=== PATIENT | male | born 1980 | race Two or more races ===

== ENCOUNTER 2024-04-28 14:08 | Inpatient (IN) | payer MEDICAID, OTHER ==
[2024-04-28] VITALS (9 sets, daily range): BP systolic 99–138; BP diastolic 39–53; PULSE 56–76; RESP 13–21; TEMP 98–98.4; O2SAT 99
[~2024-04-28] VITALS: Ht 160 cm; Wt 81.7 kg
[2024-04-28] MEDS: SODIUM CHLORIDE 0.9% 1,000 ML IV SCH (03:05)
[2024-04-28 15:52] LABS: Eosinophils # (auto) 0.1 10 ^3/uL (0-0.8); Monocytes # (auto) 0.5 10 ^3/uL (0-1.3); Neutrophils # (auto) 4.4 10 ^3/uL (1.6-8.6); Nucleated Red Blood Cells % 0.2 %
[2024-04-28 15:54] LABS: Basophils # (auto) 0 10 ^3/uL (0-0.2); Basophils % (auto) 0.5 % (0.0-2.0); Eosinophils % (auto) 1.7 % (0.0-7.0); Hematocrit 25.9 % (41.0-53.0); Lymphocytes # (auto) 1.7 10 ^3/uL (0.4-5.4); Lymphocytes % (auto) 25.7 % (10.0-50.0); Mean Corpuscular Hemoglobin 12.8 pg (28.0-32.0); Mean Corpuscular Hgb Conc. 23.7 g/dL (32.0-36.0); Mean Corpuscular Volume 53.8 fL (80.0-100.0); Neutrophils % (auto) 65.1 % (37.0-80.0); Platelet Count (auto) 338 10^3/uL (140-450); Red Blood Cells 4.81 10^6/uL (4.5-5.90); White Blood Cell 6.8 10^3/uL (4.4-10.8)
[2024-04-28 16:00] LABS: Hemoglobin 6.1 g/dL (13.5-17.5); Red Cell Distribution Width 26.1 % (11.8-14.3)
[2024-04-28 16:16] LABS: Alanine Aminotransferase 17 U/L (7-40); Albumin 4.5 g/dL (3.2-4.8); Alkaline Phosphatase 77 U/L (46-116); Anion Gap 3 (5-15); Aspartate Aminotransferase 14 U/L (13-40); Bilirubin, Total 2.2 mg/dL (0.2-1.0); Blood Urea Nitrogen 13 mg/dL (9-23); Calcium 9.1 mg/dL (8.7-10.4); Carbon Dioxide 28 mmol/L (20-30); Chloride 108 mmol/L (98-107); Glucose 92 mg/dL (74-106); Potassium 4.2 mmol/L (3.5-5.1); Sodium 139 mmol/L (136-145)
[2024-04-28 17:38] LABS: Anisocytosis Moderate; Platelet Estimate Adequate
[2024-04-28 17:39] LABS: Hypochromia Marked; Ovalocytes MODERATE; Tear Drop Cells FEW
[2024-04-28 17:59] LABS: % Iron Saturation 4.1 % (20-55)
[2024-04-28] MEDS ORDERED: ACETAMINOPHEN 325 MG TAB PO PRN (21:15)
[2024-04-28] MEDS ORDERED: HYDROcodone-ACET 5/325MG TAB PO PRN (21:15)
[2024-04-28] MEDS ORDERED: DOCUSATE SOD 100 MG CAP PO PRN (21:15)
[2024-04-28] MEDS ORDERED: ONDANSETRON HCL 4 MG/2 ML VIAL IV PRN (21:15)
[2024-04-28] MEDS ORDERED: NITROGLYCERIN 0.4 MG SL TAB SL PRN (22:15)
[2024-04-28] MEDS ORDERED: MORPHINE SULFATE INJ 2 MG/ml SYRG IV PRN (22:15)
[2024-04-29] VITALS (10 sets, daily range): BP systolic 94–117; BP diastolic 42–69; PULSE 54–62; RESP 16–20; TEMP 98–98.8; O2SAT 96–100
[2024-04-29] MEDS ORDERED: FER325T PO (02:24)
[2024-04-29 06:16] LABS: Lymphocytes # (auto) 1.4 10 ^3/uL (0.4-5.4); Neutrophils # (auto) 2.7 10 ^3/uL (1.6-8.6)
[2024-04-29 06:19] LABS: Basophils # (auto) 0.1 10 ^3/uL (0-0.2); Basophils % (auto) 1.1 % (0.0-2.0); Eosinophils # (auto) 0.1 10 ^3/uL (0-0.8); Eosinophils % (auto) 2.6 % (0.0-7.0); Hematocrit 30.8 % (41.0-53.0); Lymphocytes % (auto) 29.4 % (10.0-50.0); Mean Corpuscular Hemoglobin 15.3 pg (28.0-32.0); Mean Corpuscular Hgb Conc. 26.1 g/dL (32.0-36.0); Mean Corpuscular Volume 58.7 fL (80.0-100.0); Monocytes # (auto) 0.5 10 ^3/uL (0-1.3); Monocytes % (auto) 9.5 % (0.0-12.0); Neutrophils % (auto) 57.4 % (37.0-80.0); Nucleated Red Blood Cells % 0.3 %; Platelet Count (auto) 272 10^3/uL (140-450); Red Blood Cells 5.24 10^6/uL (4.5-5.90); White Blood Cell 4.8 10^3/uL (4.4-10.8)
[2024-04-29 06:29] LABS: Alanine Aminotransferase 13 U/L (7-40); Albumin 4.1 g/dL (3.2-4.8); Alkaline Phosphatase 64 U/L (46-116); Anion Gap 4 (5-15); Aspartate Aminotransferase 12 U/L (13-40); BUN/Creatinine Ratio 10.5 (10.0-20.0); Bilirubin, Total 2.7 mg/dL (0.2-1.0); Blood Urea Nitrogen 9 mg/dL (9-23); Calcium 8.9 mg/dL (8.7-10.4); Carbon Dioxide 27 mmol/L (20-30); Chloride 109 mmol/L (98-107); Glucose 81 mg/dL (74-106); Sodium 140 mmol/L (136-145); Total Protein 6.7 g/dL (5.7-8.2)
[2024-04-29 06:54] LABS: Red Cell Distribution Width 32.6 % (11.8-14.3)
[2024-04-29 08:45] LABS: Anisocytosis Marked; Hypochromia Marked; Platelet Estimate Adequate
[2024-04-29 08:46] LABS: Ovalocytes MODERATE; Tear Drop Cells FEW
[2024-04-30 10:50] LABS: Folate (Folic Acid) 14.05 ng/mL (>5.38)
== END 2024-04-29 15:00 | disposition home or self-care (01) | DRG 663 ==
LOC: ER 14:08 → TELE 22:11 → TELE-CENTR 23:45
PROVIDERS: ADMIT Nurse Practitioner Family; ATTEND Nurse Practitioner Family
PROC: 30233N1 Transfusion of Nonautologous Red Blood Cells into Peripheral Vein, Percutaneous Approach (ICD-10-PCS; principal; 2024-04-28)
DX: D50.9 Iron deficiency anemia, unspecified (principal)
CPT/HCPCS: 36415; 36430; 80053; 82607; 82728; 82746; 83540; 83550; 83605; 83615; 84484; 85025; 85045; 86850; 86900; 86901; 86922; G0378

== ENCOUNTER 2024-11-09 18:25 | Inpatient (IN) | payer MEDICAID ==
[~2024-11-09] VITALS: Ht 160 cm; Wt 81.5 kg
[~2024-11-09 18:25] MED LIST: FER325T PO
--- NOTE | 2024-11-09 19:00 | ED.PDOC ---
History of Present Illness HPI Comments 44M presents to the Er w/ prior Hx of anemia which may be associated to the c/c of ABN labs. Pt reports on getting his blood drawn on Tuesday11/05/24 and getting a call the next day of 11/06/24 and not getting to the ER until Tuesday, which is today of 11/09/24. Pt states that the call was about his hemoglobin was in 5.2. Pt notes that the anemic started in 2014 and has had a transfusion in the past. Social Hx of Second hand tobacco use, but denies alcohol and substance use. Denies chills, fever, N/V/D, SOB, CP or other associated symptom's, modifiers, or recent injuries or sick contact at this time. Time Seen by MD: 18:45 Reviewed Notes: Nurses Notes, Medications, Allergies Allergies: Coded Allergies: NO KNOWN ALLERGIES (Unverified , 04/28/24) Home Meds Reported Medications Ferrous Sulfate (Ferrous Sulfate) 325 Mg Tab, 1 TAB PO BID 04/29/24 Information Source: Patient Mode of Arrival: Ambulatory Severity: Moderate Timing: Days Duration: Since onset, Days Prehospital treatment: None Past Medical History PAST MEDICAL HISTORY: Anemia Surgical History: Denies all surgeries Family History Family History: Reviewed,noncontributory to illness, Unknown Social History Smoker: Secondhand Alcohol: Denies ETOH Use Drugs: Denies Drug Use Lives In: Home Constitutional: denies: chills, diaphoresis, fatigue, fever, malaise, sweats, weakness, others EENTM: denies: blurred vision, double vision, ear bleeding, ear discharge, ear drainage, ear pain, ear ringing, eye pain, eye redness, hearing loss, mouth pain, mouth swelling, nasal discharge, nose bleeding, nose congestion, nose pain, photophobia, tearing, throat pain, throat swelling, voice changes, others Respiratory: denies: cough, hemoptysis, orthopnea, SOB at rest, shortness of breath, SOB with excertion, stridor, wheezing, others Cardiovascular: denies: chest pain, dizzy spells, diaphoresis, Dyspnea on exertion, edema, irregular heart beat, left arm pain, lightheadedness, palpitations, PND, syncope, others Gastrointestinal: denies: abdomen distended, abdominal pain, blood streaked bowels, constipated, diarrhea, dysphagia, difficulty swallowing, hematemesis, melena, nausea, poor appetite, poor fluid intake, rectal bleeding, rectal pain, vomiting, others Genitourinary: denies: burning, dysuria, flank pain, frequency, hematuria, incontinence, penile discharge, penile sore, pain, testicle pain, testicle swelling, urgency, others Neurological: denies: dizziness, fainting, headache, left sided numbness, left sided weakness, numbness, paresthesia, pre-existing deficit, right sided nu mbness, right sided weakness, seizure, speech problems, tingling, tremors, weakness, others Musculoskeletal: denies: back pain, gout, joint pain, joint swelling, muscle pain, muscle stiffness, neck pain, others Integumetry: denies: bruises, change in color, change in hair/nails, dryness, laceration, lesions, lumps, rash, wounds, others Allergic/Immunocompromised: denies: Difficulty Healing, Frequent Infections, Hives, Itching, others Hematologic/Lymphatic: denies: anemia, blood clots, easy bleeding, easy bruising, swollen glands, others Endocrine: denies: excessive hunger, excessive sweating, excessive thirst, excessive urination, flushing, intolerance to cold, intolerance to heat, unexplained weight gain, unexplained weight loss, others Psychiatric: denies: anxiety, bipolar disorder, depression, hopeless, panic disorder, schizophrenia, sleepless, suicidal, others All Other Systems: Reviewed and Negative Physical Exam General Appearance: Moderate Distress HEENT: Pale Conjuntivae (L), Pale Conjuntivae (R), Pharynx Normal, TMs Normal Neck: Full Range of Motion, Non-Tender, Normal, Normal Inspection Respiratory: Chest Non-Tender, Lungs Clear, No Accessory Muscle Use, No Respiratory Distress, Normal Breath Sounds Cardiovascular: No Edema, No JVD, No Murmur, No Gallop, Normal Peripheral Pulses, Regular Rate/Rhythm Breast Exam: Deferred Gastrointestinal: No Organomegaly, Non Tender, No Pulsatile Mass, Normal Bowel Sounds, Soft Genitalia: Deferred Pelvic: Deferred Rectal: Deferred Extremities: No calf tenderness, Normal capillary refill, Normal inspection, Normal range of motion, Non-tender, No pedal edema Musculoskeletal : Apperance: Normal Neurologic: Alert, electronic die maker II-XII nml as Tested, Motor Weakness, Normal Affect, Normal Mood, No Sensory Deficits Cerebellar Function: Normal Reflexes: Normal Skin: Dry, Pallor, Warm Lymphatic: No Adenopathy Was a procedure done? Was a procedure done?: No Differential Dx Considerations may include: Severe anemia, generalized weakness X-Ray, Labs, Meds, VS Vital Signs Date Time Temp Pulse Resp B/P (MAP) Pulse Ox O2 Delivery O2 Flow Rate FiO2 11/09/24 19:02 98.2 91 20 110/56 (74) 99 Lab Test 11/09/24 19:10 Range/Units White Blood Count 7.2 4.4-10.8 10^3/uL Red Blood Count 4.28 L 4.5-5.90 10^6/uL Hemoglobin 5.3 *L 13.5-17.5 g/dL Hematocrit 22.5 L 41.0-53.0 % Mean Corpuscular Volume 52.6 L 80.0-100.0 fL Mean Corpuscular Hemoglobin 12.4 L 28.0-32.0 pg Mean Corpuscular Hemoglobin Concent 23.6 L 32.0-36.0 g/dL Red Cell Distribution Width 26.7 H 11.8-14.3 % Platelet Count 286 140-450 10^3/uL Mean Platelet Volume 9.2 6.9-10.8 fL Neutrophils (%) (Auto) 61.7 37.0-80.0 % Lymphocytes (%) (Auto) 28.1 10.0-50.0 % Monocytes (%) (Auto) 7.1 0.0-12.0 % Eosinophils (%) (Auto) 2.0 0.0-7.0 % Basophils (%) (Auto) 1.1 0.0-2.0 % Neutrophils # (Auto) 4.5 1.6-8.6 10 ^3/uL Lymphocytes # (Auto) 2.0 0.4-5.4 10 ^3/uL Monocytes # (Auto) 0.5 0-1.3 10 ^3/uL Eosinophils # (Auto) 0.1 0-0.8 10 ^3/uL Basophils # (Auto) 0.1 0-0.2 10 ^3/uL Nucleated Red Blood Cells 0.6 % Platelet Estimate Adequate Hypochromasia (manual) Marked Anisocytosis (manual) Moderate Microcytosis Marked Tear Drop Cells Few Ovalocytes Moderate Schistocytes Moderate Sodium Level 140 136-145 mmol/L Potassium Level 4.0 3.5-5.1 mmol/L Chloride Level 106 98-107 mmol/L Carbon Dioxide Level 26 20-31 mmol/L Anion Gap 8 5-15 Blood Urea Nitrogen 10 9-23 mg/dL Creatinine 0.88 0.700-1.30 mg/dL Glomerular Filtration Rate Calc 107 >90 mL/min BUN/Creatinine Ratio 11.4 10.0-20.0 Serum Glucose 103 74-106 mg/dL Calcium Level 9.5 8.7-10.4 mg/dL IV Hep-Lock was established The CBC shows a hemoglobin of 5.3 hematocrit of 22.5 The platelets are within normal limits The chemistry panel is within normal limits. At this time we typed and screen the patient and the patient will be admitted The patient will be transfused with 2 units of packed red blood cells The patient was being admitted Images Reviewed?: Images reviewed and evaluated by me Time of 1ST Reevaluation: 19:15 Reevaluation 1ST: Unchanged Patient Education/Counseling: Diagnosis, Treatment, Prognosis Family Education/Counseling: No Family Present Departure 1 Departure Time of Disposition: 20:09 Impression: Primary Impression: Generalized weakness Additional Impression: Severe anemia Disposition: ADMITTED INPATIENT Admit to: Tele Condition: Fair Critical Care Note Critical Care Time?: Yes (35 min-critical care time only) Stability Stability form required: Yes Unstable for transfer: Telemetry monitoring (Telemetry monitoring required), ED Physician Assesment (Clinical assesment) Heart Score Heart Score: Heart Score Response (Comments) Value History N/A 0 EKG N/A 0 Age N/A 0 Risk Factors N/A 0 Troponin N/A 0 Total 0 I personally scribed for FAM GUTIERREZ MD ([email or web address]) on 11/09/24 at 18:59. Electronically submitted by Luis Diaz ([email or web address]). FAM GUTIERREZ MD Nov 09, 2024 18:59
[2024-11-09 19:33] LABS: Basophils # (auto) 0.1 10 ^3/uL (0-0.2); Eosinophils # (auto) 0.1 10 ^3/uL (0-0.8); Hematocrit 22.5 % (41.0-53.0); Mean Corpuscular Hgb Conc. 23.6 g/dL (32.0-36.0)
[2024-11-09 19:37] LABS: Basophils % (auto) 1.1 % (0.0-2.0); Lymphocytes % (auto) 28.1 % (10.0-50.0); Mean Corpuscular Hemoglobin 12.4 pg (28.0-32.0); Mean Corpuscular Volume 52.6 fL (80.0-100.0); Monocytes # (auto) 0.5 10 ^3/uL (0-1.3); Monocytes % (auto) 7.1 % (0.0-12.0); Neutrophils # (auto) 4.5 10 ^3/uL (1.6-8.6); Neutrophils % (auto) 61.7 % (37.0-80.0); Nucleated Red Blood Cells % 0.6 %; Platelet Count (auto) 286 10^3/uL (140-450); Red Blood Cells 4.28 10^6/uL (4.5-5.90); Red Cell Distribution Width 26.7 % (11.8-14.3); White Blood Cell 7.2 10^3/uL (4.4-10.8)
[2024-11-09 19:41] LABS: Chloride 106 mmol/L (98-107); Hemoglobin 5.3 g/dL (13.5-17.5); Sodium 140 mmol/L (136-145)
[2024-11-09 19:42] LABS: Anion Gap 8 (5-15); Calcium 9.5 mg/dL (8.7-10.4); Carbon Dioxide 26 mmol/L (20-31)
[2024-11-09 19:47] LABS: BUN/Creatinine Ratio 11.4 (10.0-20.0); Blood Urea Nitrogen 10 mg/dL (9-23); Glucose 103 mg/dL (74-106)
[2024-11-09 20:00] LABS: Platelet Estimate Adequate
[2024-11-09 20:04] LABS: Ovalocytes MODERATE; Tear Drop Cells FEW
[2024-11-09 20:05] LABS: Hypochromia Marked
[2024-11-09 20:06] LABS: Anisocytosis Moderate
[2024-11-09] MEDS: SODIUM CHLOR 0.9% PF (SALINE LOCK) 10ML VIAL/SYR IV SCH (22:00)
[2024-11-09] MEDS ORDERED: ACETAMINOPHEN 325 MG TAB PO PRN (22:00)
[2024-11-09] MEDS ORDERED: MORPHINE SULFATE INJ 2 MG/ml SYRG IV PRN (22:00)
[2024-11-09 22:15] VITALS: PULSE 77; RESP 17; O2SAT 100
[2024-11-09] MEDS: SODIUM CHLORIDE 0.9% 1,000 ML IV SCH (22:22)
[2024-11-09 22:29] LABS: INR 1.03 (0.9-1.15); Partial Thromboplastin Time 24.3 SEC (24.5-34.5); Prothrombin Time 10.9 sec (9.3-11.8)
[2024-11-09 22:42] LABS: % Iron Saturation 3.3 % (20-55)
[2024-11-09 23:01] LABS: Albumin 4.7 g/dL (3.2-4.8); Alkaline Phosphatase 70 U/L (46-116); Anion Gap 7 (5-15); BUN/Creatinine Ratio 11.7 (10.0-20.0); Blood Alcohol 4.7 mg/dL (<10); Blood Urea Nitrogen 11 mg/dL (9-23); Calcium 9.2 mg/dL (8.7-10.4); Carbon Dioxide 27 mmol/L (20-31); Chloride 106 mmol/L (98-107); Glucose 99 mg/dL (74-106); Magnesium 2.3 mg/dL (1.6-2.6); Potassium 3.6 mmol/L (3.5-5.1); Sodium 140 mmol/L (136-145); Total Protein 7.5 g/dL (5.7-8.2)
[2024-11-09 23:02] LABS: Aspartate Aminotransferase 10 U/L (13-40)
[2024-11-09 23:03] LABS: Alanine Aminotransferase < 9 U/L (7-40); Bilirubin, Total 1.9 mg/dL (0.2-1.0); Fibrinogen 299 mg/dL (177-375)
--- NOTE | 2024-11-09 23:21 | DVHHPRES ---
History of Present Illness Resident Creating Document: ERIC GUPTA RESIDENT History of Present Illness Niall Foster 44 years old male with a PMH of anemia presented to the ED with the chief complaints of abnormal labs. Patient reported he recently underwent lab test on 11/05/2024 and got a call from the lab next day regarding his hemoglobin and advised him to visit ED. patient reported he has been having longstanding chronic anemia for 10 years which required multiple transfusions and underwent many procedures like colonoscopy and endoscopy which are inconclusive, recent colonoscopy endoscopy was 14 months ago which is negative. Patient reported his symptoms feel fatty, dizziness which is on and off and taking iron pills. Patient reports for last 2 weeks he is not taking iron pills properly. On my assessment patient denies fever, nausea, vomiting, shortness of breath, dizziness, other acute associated symptoms. PMH: Chronic anemia PSH: Denies Social history: Lives with family. Denies smoking, alcohol and other drug abuse Family history: Noncontributory Allergies: No known allergies Review of Systems Constitutional: Yes: Weakness Eyes: No: Pain, Vision change, Conjunctivae inflammation, Eyelid inflammation, Other, Redness ENT: No: Ear pain, Ear discharge, Nose pain, Nose discharge, Nose congestion, Mouth pain, Mouth swelling, Throat pain, Throat swelling, Other Respiratory: No: Cough, Dry, Shortness of breath, SOB with excertion, Wheezing, Hemoptysis, Pleuritic Pain, Sputum, Wheezing, Other Cardiovascular: Lt Headedness; No: Chest Pain, Palpitations, Orthopnea, Paroxysmal Noc. Dyspnea, Edema, Other Gastrointestinal: No: Nausea, Vomiting, Abdominal Pain, Diarrhea, Constipation, Melena, Hematochezia, Other Genitourinary: No Dysuria, No Frequency, No Incontinence, No Hematuria, No Retention, No Other Musculoskeletal: No: other, neck pain, shoulder pain, arm pain, back pain, hand pain, leg pain, foot pain Skin: No: Rash, Lesions, Jaundice, Bruising, Other Neurological: No: Weakness, Numbness, Incoordination, Change in speech, Confusion, Seizures, Other Allergies: Coded Allergies: NO KNOWN ALLERGIES (Unverified , 04/28/24) Medications Current Medications Medications Dose Ordered Sig/Kimberly Route Start Time Stop Time Status Last Admin Dose Admin Sodium Chloride 10 ml Q8HR IV 11/09/24 22:00 Sodium Chloride 1,000 ml @ 120 mls/hr Q8H20M IV 11/09/24 22:00 11/09/24 22:22 120 MLS/HR Acetaminophen 650 mg Q6HP PRN PO 11/09/24 22:00 Morphine Sulfate 2 mg Q4HPRN PRN IV 11/09/24 22:00 Exam Vital Signs Vital Signs Date Time Temp Pulse Resp B/P (MAP) Pulse Ox O2 Delivery O2 Flow Rate FiO2 11/09/24 21:59 98.3 71 19 112/41 (64) 100 98.3 Exam Pt is lying on bed General Appearance: Alert, Oriented X3, Cooperative, Not in acute distress HEENT: Atraumatic, Mucous membranes moist/pink Respiratory: Clear to auscultation, Normal air movement, No added sounds Cardiovascular: Regular rate, Normal S1, Normal S2, No murmurs Abdominal: Active bowel sounds, Soft, no distention, no tenderness Extremities: No edema, Normal pulses, No tenderness/swelling Skin: No Significant rash, except past surgical scars Neuro: Normal speech, sensorimotor deficits none Psych/Mental Status: Mental status NL, Mood NL Rectal rectal exam: Rectal exam performed, no external lesions or tags noted, rectal vault is empty, no masses palpable. Nurse was there as sharperone during examination Labs/Xrays Labs Test 11/09/24 22:32 11/09/24 22:28 11/09/24 22:17 11/09/24 19:10 Range/Units Stool Occult Blood Negative Negative Stool Occult Blood Sample #3 Negative Fibrinogen 299 177-375 mg/dL D-Dimer, Quantitative < 0.19 0.0-0.49 mg/L FEU Sodium Level 140 136-145 mmol/L Potassium Level 3.6 3.5-5.1 mmol/L Chloride Level 106 98-107 mmol/L Carbon Dioxide Level 27 20-31 mmol/L Anion Gap 7 5-15 Blood Urea Nitrogen 11 9-23 mg/dL Creatinine 0.94 0.700-1.30 mg/dL Glomerular Filtration Rate Calc 101 >90 mL/min BUN/Creatinine Ratio 11.7 10.0-20.0 Serum Glucose 99 74-106 mg/dL Calcium Level 9.2 8.7-10.4 mg/dL Magnesium Level 2.3 1.6-2.6 mg/dL Total Bilirubin 1.9 H 0.2-1.0 mg/dL Aspartate Amino Transferase (AST) 10 L 13-40 U/L Alanine Aminotransferase (ALT) < 9 7-40 U/L Alkaline Phosphatase 70 46-116 U/L Total Protein 7.5 5.7-8.2 g/dL Albumin 4.7 3.2-4.8 g/dL Plasma/Serum Blood Alcohol 4.7 <10 mg/dL White Blood Count 7.2 4.4-10.8 10^3/uL Red Blood Count 4.28 L 4.5-5.90 10^6/uL Hemoglobin 5.3 *L 13.5-17.5 g/dL Hematocrit 22.5 L 41.0-53.0 % Mean Corpuscular Volume 52.6 L 80.0-100.0 fL Mean Corpuscular Hemoglobin 12.4 L 28.0-32.0 pg Mean Corpuscular Hemoglobin Concent 23.6 L 32.0-36.0 g/dL Red Cell Distribution Width 26.7 H 11.8-14.3 % Platelet Count 286 140-450 10^3/uL Mean Platelet Volume 9.2 6.9-10.8 fL Neutrophils (%) (Auto) 61.7 37.0-80.0 % Lymphocytes (%) (Auto) 28.1 10.0-50.0 % Monocytes (%) (Auto) 7.1 0.0-12.0 % Eosinophils (%) (Auto) 2.0 0.0-7.0 % Basophils (%) (Auto) 1.1 0.0-2.0 % Neutrophils # (Auto) 4.5 1.6-8.6 10 ^3/uL Lymphocytes # (Auto) 2.0 0.4-5.4 10 ^3/uL Monocytes # (Auto) 0.5 0-1.3 10 ^3/uL Eosinophils # (Auto) 0.1 0-0.8 10 ^3/uL Basophils # (Auto) 0.1 0-0.2 10 ^3/uL Nucleated Red Blood Cells 0.6 % Platelet Estimate Adequate Hypochromasia (manual) Marked Anisocytosis (manual) Moderate Microcytosis Marked Tear Drop Cells Few Ovalocytes Moderate Schistocytes Moderate Prothrombin Time 10.9 9.3-11.8 sec Prothrombin Time INR 1.03 0.9-1.15 Activated Partial Thromboplast Time 24.3 L 24.5-34.5 SEC Iron Level 12 L 65-175 ug/dL Total Iron Binding Capacity 365 250-425 ug/dL Percent Iron Saturation 3.3 L 20-55 % Ferritin 2.2 L 22-322 ng/mL B-Type Natriuretic Peptide 102.61 0-100 pg/mL Thyroid Stimulating Hormone (TSH) 2.99 0.55-4.78 uIU/mL Assessment/Plan Assessment/Plan # chronic microcytic, hypochromic red deficiency anemia -ordered PRBC -ordered labs -iron IV BP -ordered echocardiogram -ordered CT abdominal pelvis -rectal examination done and send sample for the occult blood -IV Protonix -GI consult if needed Protonix Patient is ambulatory Regular diet Goals of care discussed with the patient for more than 29 minutes: Full code status Case discussed with Dr. Perez, patient and nurse Plan discussed with: Patient My Orders Orders - ERIC GUPTA RESIDENT Procedure Category Date Status Time Admit ADMIT 11/09/24 Transmitted 22:00 Allergies LANDON 11/09/24 In Process 22:00 Code Status CODE 11/09/24 Transmitted 22:00 Sodium Chloride Lock PHA 11/09/24 In Process (Saline Lock Ns) 22:00 Sodium Chloride 0.9% PHA 11/09/24 In Process 22:00 Complete Blood Count LAB 11/10/24 Verified 04:00 Comprehensive LAB 11/10/24 Verified Metabolic Panel 04:00 Cardiac DIET 11/10/24 Transmitted Diet-2gna,Lofat,Lochol Breakfast Echo 2d Mode Cardiac US 11/09/24 Logged DOP 22:00 Condition: Stable LANDON 11/09/24 In Process 22:00 Acetaminophen Tablet PHA 11/09/24 In Process (Tylenol Tablet) 22:00 Morphine Sulfate PHA 11/09/24 In Process Injection 22:00 Sequential LANDON 11/09/24 In Process Compression Device Covid19 Antigen Rocio LAB 11/09/24 In Process 22:00 Drug Screen LAB 11/09/24 Logged 22:00 Rapid Influenza A&B LAB 11/09/24 In Process 22:00 Urinalysis LAB 11/09/24 Logged 22:00 Ct Ab Pel Wo Con-No CT 11/09/24 Logged Oral Or Iv 22:05 Reticulocyte Count LAB 11/09/24 In Process 23:13 Iron Sucrose Complex PHA 11/10/24 Logged (Venofer) 12:00 Pantoprazole PHA 11/09/24 Transmitted (Protonix) 23:30 Date of Service: Nov 09, 2024 Billing Provider: ORESTES PEREZ MD Common Visit Codes: [id number] INP/OBS CARE (HIGH) ERIC GUPTA RESIDENT Nov 09, 2024 23:21 ORESTES PEREZ MD Nov 12, 2024 10:24
[2024-11-09 23:22] LABS: COVID19 ANTIGEN SOFIA FIA NEGATIVE (NEGATIVE); Rapid Influenza A Negative (Negative); Rapid Influenza B Negative (Negative)
[2024-11-09] MEDS: PANTOPRAZOLE 40 MG/10 ML VIAL INJ IV SCH (23:45)
[2024-11-09 23:46] VITALS: BP 113/36; PULSE 77; RESP 26; TEMP 98.3
[2024-11-10] VITALS (18 sets, daily range): BP systolic 98–120; BP diastolic 38–78; PULSE 63–81; RESP 16–28; TEMP 98–99.2; O2SAT 97–99
--- NOTE | 2024-11-10 00:54 | DVH ---
CLINICAL HISTORY: Abdominal mass TECHNIQUE: CT of the abdomen and pelvis was performed without intravenous contrast. This exam was per formed according to our departmental dose optimization program. Up-to-date CT equipment and radiation dose reduction techniques are utilized as appropriate. COMPARISON: None FINDINGS: Lower Thorax: Moderate hiatal hernia. Tiny, sub 5 mm nodule in the basilar right lower lobe on series 3, image 15. Hypodensity of the blood pool relative to the myocardium indicative of anemia. There is mild cardiomegaly. Liver and Biliary system: Unremarkable. Spleen: Splenomegaly. Adrenal Glands and Kidneys: Unremarkable. Pancreas and Retroperitoneum: Unremarkable. Aorta and Major Vessels: Unremarkable. Bowel, Mesentery and Peritoneal space: Normal caliber small and large bowel. Moderate sigmoid diverti culosis normal appendix. No free air or fluid collection. Pelvis: Unremarkable. Abdominal wall and Osseous Structures: Small fat containing bilateral inguinal and umbilical hernias. No destructive osseous lesion. IMPRESSION: 1. No noncontrast evidence of acute abnormality or abdominal mass. 2. Moderate hiatal hernia. 3. Anemia suggested. Correlate with CBC 4. Mild cardiomegaly. 5. Splenomegaly. 6. Moderate sigmoid diverticulosis.
[2024-11-10 01:29] LABS: Urine Bacteria None Seen /hpf (None Seen)
[2024-11-10 02:05] LABS: Urine Blood Negative /uL (Negative); Urine Clarity Clear (Clear); Urine Color Light-Yellow (Yellow); Urine Mucus FEW (None Seen); Urine Protein, UAD Negative (Negative); Urine Specific Gravity 1.019 (1.001-1.035); Urine Squamous Epithelial Cell None Seen /hpf (<5); Urine Urobilinogen Normal (Negative); Urine WBC < 1 /HPF (0-3); Urine pH 5.5 (5.0-9.0)
[2024-11-10 02:06] LABS: Amphetamine Screen, Urine Neg (NEGATIVE); Barbiturate Scree,Urine Neg (NEGATIVE); Benzodiazephine Screen, Urine Neg (NEGATIVE); Cannabinoid Screen, Urine Neg (NEGATIVE); Cocaine Screen, Urine Neg (NEGATIVE); Opiate Scree,Urine Neg (NEGATIVE); Phencyclidine Screen, Urine Neg (NEGATIVE)
[2024-11-10 07:15] LABS: Basophils # (auto) 0.1 10 ^3/uL (0-0.2); Basophils % (auto) 1.1 % (0.0-2.0); Eosinophils # (auto) 0.1 10 ^3/uL (0-0.8); Eosinophils % (auto) 1.7 % (0.0-7.0); Hematocrit 27.1 % (41.0-53.0); Hemoglobin 7.2 g/dL (13.5-17.5); Lymphocytes # (auto) 1.2 10 ^3/uL (0.4-5.4); Lymphocytes % (auto) 18.4 % (10.0-50.0); Mean Corpuscular Hemoglobin 16.1 pg (28.0-32.0); Mean Corpuscular Hgb Conc. 26.5 g/dL (32.0-36.0); Mean Corpuscular Volume 60.7 fL (80.0-100.0); Monocytes # (auto) 0.5 10 ^3/uL (0-1.3); Monocytes % (auto) 6.9 % (0.0-12.0); Neutrophils # (auto) 4.9 10 ^3/uL (1.6-8.6); Neutrophils % (auto) 71.9 % (37.0-80.0); Nucleated Red Blood Cells % 0.4 %; Platelet Count (auto) 272 10^3/uL (140-450); Red Blood Cells 4.46 10^6/uL (4.5-5.90); White Blood Cell 6.8 10^3/uL (4.4-10.8)
[2024-11-10 07:47] LABS: Albumin 4.1 g/dL (3.2-4.8); Alkaline Phosphatase 62 U/L (46-116); Anion Gap 9 (5-15); BUN/Creatinine Ratio 13.3 (10.0-20.0); Blood Urea Nitrogen 11 mg/dL (9-23); Carbon Dioxide 24 mmol/L (20-31); Chloride 106 mmol/L (98-107); Glucose 87 mg/dL (74-106); Potassium 3.9 mmol/L (3.5-5.1); Sodium 139 mmol/L (136-145); Total Protein 6.6 g/dL (5.7-8.2)
[2024-11-10 07:49] LABS: Alanine Aminotransferase < 9 U/L (7-40); Aspartate Aminotransferase < 8 U/L (13-40); Bilirubin, Total 2.5 mg/dL (0.2-1.0)
[2024-11-10] MEDS ORDERED: OMEP20TA PO (11:22)
[2024-11-10] MEDS: IRON SUCROSE COMPLEX 110 ML IV SCH (12:10)
--- NOTE | 2024-11-10 14:10 | DVHPN2 ---
Subjective The patient is seen and examined at bedside. Complain of being weak and dizzy. Status post blood transfusions. No hematemesis or melena. Reviewed: Care Plan, H&P, Labs, Medications, Previous Orders, Radiology Changes from previous H/P or p: No Changes Eyes: No Pain, No Vision change, No Conjunctivae inflammation, No Eyelid inflammation, No Other, No Redness ENT: No Ear pain, No Ear discharge, No Nose pain, No Nose discharge, No Nose congestion, No Mouth pain, No Mouth swelling, No Throat pain, No Throat swelling, No Other Cardiovascular: No Chest Pain, No Palpitations, No Orthopnea, No Paroxysmal Noc. Dyspnea, No Edema; Lt Headedness; No Other Respiratory: No Cough, No Dry, No Shortness of breath, No SOB with excertion, No Wheezing, No Hemoptysis, No Pleuritic Pain, No Sputum, No Other Gastrointestinal: No Nausea, No Vomiting, No Abdominal Pain, No Diarrhea, No Constipation, No Melena, No Hematochezia, No Other Genitourinary: No Dysuria, No Frequency, No Incontinence, No Hematuria, No Retention, No Other Musculoskeletal: No other, No neck pain, No shoulder pain, No arm pain, No back pain, No hand pain, No leg pain, No foot pain Skin: No Rash, No Lesions, No Jaundice, No Bruising, No Other Objective Vitals Vital Signs Date Time Temp Pulse Resp B/P (MAP) Pulse Ox O2 Delivery O2 Flow Rate FiO2 11/10/24 11:02 98.3 71 16 119/55 (76) 98 98.3 11/10/24 11:02 Room Air* 0 21 Intake/Output Intake and Output 11/10/24 07:00 Intake Total 2160 ml Output Total 200 ml Balance 1960 ml Intake Oral 0 ml IV Total 960 ml Tube Feeding 0 ml Blood Product 1200 ml Other 0 ml Output Urine Total 200 ml Stool Total 0 ml Urine/Stool Mix 0 ml Gastric Drainage Total 0 ml Emesis 0 ml Chest Tube Drainage Total 0 ml Drainage Total 0 ml Blood Draw 0 ml Other 0 ml # Voids 1 General Appearance: Alert, Oriented X3, Cooperative, No acute distress HEENT: Atraumatic, PERRLA, EOMI, Mucous membr. moist/pink Neck: Supple Lungs: Clear to auscultation, Normal air movement Cardiovascular: Regular rate, Normal S1, Normal S2, No murmurs, Gallops, Rubs Abdomen: Normal bowel sounds, Soft, No tenderness Neuro: Cranial nerves 3-12 NL Psych/Mental Status: Mental status NL Medications Current Medications Medications Dose Ordered Sig/Kimberly Route Start Time Stop Time Status Last Admin Dose Admin Sodium Chloride 10 ml Q8HR IV 11/09/24 22:00 Sodium Chloride 1,000 ml @ 120 mls/hr Q8H20M IV 11/09/24 22:00 11/10/24 07:30 120 MLS/HR Acetaminophen 650 mg Q6HP PRN PO 11/09/24 22:00 Morphine Sulfate 2 mg Q4HPRN PRN IV 11/09/24 22:00 Iron Sucrose 110 ml @ 110 mls/hr DAILY@1200 IV 11/10/24 12:00 11/14/24 12:59 11/10/24 12:10 110 MLS/HR Pantoprazole Sodium 40 mg DAILY IV 11/09/24 23:30 11/10/24 12:09 40 MG Laboratory Results Laboratory Tests 11/10/24 06:24 Chemistry Test 11/09/24 19:10 11/09/24 22:17 11/10/24 06:24 Calcium Level 9.5 mg/dL (8.7-10.4) 9.2 mg/dL (8.7-10.4) 9.0 mg/dL (8.7-10.4) Albumin 4.7 g/dL (3.2-4.8) 4.1 g/dL (3.2-4.8) Magnesium Level 2.3 mg/dL (1.6-2.6) Total Protein 7.5 g/dL (5.7-8.2) 6.6 g/dL (5.7-8.2) Coagulation Test 11/09/24 19:10 11/09/24 22:17 Prothrombin Time 10.9 sec (9.3-11.8) Prothrombin Time INR 1.03 (0.9-1.15) Activated Partial Thromboplast Time 24.3 SEC (24.5-34.5) L Fibrinogen 299 mg/dL (177-375) D-Dimer, Quantitative < 0.19 mg/L FEU (0.0-0.49) Cardiac Markers Test 11/09/24 19:10 B-Type Natriuretic Peptide 102.61 pg/mL (0-100) LFT Test 11/09/24 22:17 11/10/24 06:24 Alanine Aminotransferase (ALT) < 9 U/L (7-40) < 9 U/L (7-40) Alkaline Phosphatase 70 U/L (46-116) 62 U/L (46-116) Aspartate Amino Transferase (AST) 10 U/L (13-40) L < 8 U/L (13-40) L Total Bilirubin 1.9 mg/dL (0.2-1.0) H 2.5 mg/dL (0.2-1.0) H HgA1c, TSH Test 11/09/24 19:10 Thyroid Stimulating Hormone (TSH) 2.99 uIU/mL (0.55-4.78) Urinalysis Test 11/10/24 00:02 Urine Color Light-yellow (Yellow) Urine Clarity Clear (Clear) Urine pH 5.5 (5.0-9.0) Urine Specific [place] 1.019 (1.001-1.035) Urine Protein Negative (Negative) Urine Ketones Negative (Negative) Urine Blood Negative /uL (Negative) Urine Nitrite Negative (Negative) Urine Bilirubin Negative (Negative) Urine Urobilinogen Normal mg/dL (Negative) Urine Leukocyte Esterase Negative /uL (Negative) Urine RBC 1 /hpf (0 - 3) Urine Microscopic WBC < 1 /HPF (0-3) Urine Squamous Epithelial Cells None seen /hpf (<5) Urine Bacteria None seen /hpf (None Seen) Urine Mucus Few (None Seen) Urine Glucose Normal mg/dL (Normal) Labs and/or images reviewed: Labs reviewed by me Assessment/Plan Assessment/Plan # chronic microcytic, hypochromic red deficiency anemia status post two packed red blood cell transfusions Continuing current management. Hemoglobin today 7.2. Continuing to monitor. Transfuse when hemoglobin less than seven. Plan discussed with: Patient Date of Service: Nov 10, 2024 Billing Provider: MEG CORTEZ MD Common Visit Codes: [id number] INP/OBS CARE(HIGH) MEG CORTEZ MD Nov 10, 2024 14:10
--- NOTE | 2024-11-10 16:40 | DVHSR ---
APPROVED REPORT EXAM: Two-dimensional and M-mode echocardiogram with Doppler and color Doppler. Blood Pressure: 113/61 mmHg INDICATION to rule out strutural heart disease RISK FACTORS Height: 5'3, Weight: 183 DIMENSIONS LVDd5.3 (3.8-5.7cm)LA (2D)4.4 (1.9-4.0cm)Aortic Root2.8 (2.0-3.7cm) LVDs4.3 (2.5-4.0cm)LA (MM) (1.9-4.0cm)Aortic Cusp Exc1.9 (1.5-2.0cm) EF (%) 55.0 (55-70%)Rt. Atrium4.2 (1.9-4.0cm)Asc. Aorta2.7 cm IVSd0.7 (0.7-1.1cm)RV (D)5.0 (1.8-2.4cm) PWd0.9 (0.7-1.1cm) Mitral Valve MitralMitral Stenosis E wave1.21m/sMV Mean GR.mmHg A wave0.69m/sMV Peak GR.mmHg E/A ratio1.82D MVAcm2 DECEL [id number] 1/2 Tim[place] Aortic Valve Aortic ValveAortic Stenosis V11.37m/Ana Mean GR.6mmHg V21.64m/Ana Peak GR.11mmHg LVOT Diameter2.1 (1.8-2.4cm)Doppler AVA2.89cm2 Pulmonic Valve V21.13m/s Tricuspid Valve TR Velocity2.57m/s [id number] Conclusion Sinus rhythm. Left atrial enlargement. Right atrial and right ventricular enlargement of mild degree. Valves appear to be structurally normal. EF is 60% with normal RV function. Mild tricuspid regurgitation. No pericardial effusion masses or vegetations.
[2024-11-11 01:00] VITALS: BP_SYST 93; BP_SYST 94; BP_DIAS 41; BP_DIAS 49; PULSE 68; RESP 18; TEMP 97.7; O2SAT 99
[2024-11-11 05:00] VITALS: BP 106/55; PULSE 84; RESP 17; TEMP 84; O2SAT 100
[2024-11-11 09:00] VITALS: BP 94/46; PULSE 79; RESP 19; TEMP 98.2; O2SAT 99
--- NOTE | 2024-11-11 12:54 | DVHDS2 ---
Discharge Summary Date of Admission Nov 09, 2024 at 20:00 Date of Discharge: Nov 11, 2024 Admitting Diagnosis # chronic microcytic, hypochromic red deficiency anemia with hemoglobin of 5.3 Labs/Diagnostic Data: Laboratory Results Test 11/10/24 06:24 11/10/24 00:02 11/09/24 22:32 11/09/24 22:28 White Blood Count 6.8 10^3/uL (4.4-10.8) Red Blood Count 4.46 10^6/uL (4.5-5.90) Hemoglobin 7.2 g/dL (13.5-17.5) Hematocrit 27.1 % (41.0-53.0) Mean Corpuscular Volume 60.7 fL (80.0-100.0) Mean Corpuscular Hemoglobin 16.1 pg (28.0-32.0) Mean Corpuscular Hemoglobin Concent 26.5 g/dL (32.0-36.0) Red Cell Distribution Width 37.0 % (11.8-14.3) Platelet Count 272 10^3/uL (140-450) Mean Platelet Volume 9.3 fL (6.9-10.8) Neutrophils (%) (Auto) 71.9 % (37.0-80.0) Lymphocytes (%) (Auto) 18.4 % (10.0-50.0) Monocytes (%) (Auto) 6.9 % (0.0-12.0) Eosinophils (%) (Auto) 1.7 % (0.0-7.0) Basophils (%) (Auto) 1.1 % (0.0-2.0) Neutrophils # (Auto) 4.9 10 ^3/uL (1.6-8.6) Lymphocytes # (Auto) 1.2 10 ^3/uL (0.4-5.4) Monocytes # (Auto) 0.5 10 ^3/uL (0-1.3) Eosinophils # (Auto) 0.1 10 ^3/uL (0-0.8) Basophils # (Auto) 0.1 10 ^3/uL (0-0.2) Nucleated Red Blood Cells 0.4 % Sodium Level 139 mmol/L (136-145) Potassium Level 3.9 mmol/L (3.5-5.1) Chloride Level 106 mmol/L (98-107) Carbon Dioxide Level 24 mmol/L (20-31) Anion Gap 9 (5-15) Blood Urea Nitrogen 11 mg/dL (9-23) Creatinine 0.83 mg/dL (0.700-1.30) Glomerular Filtration Rate Calc 109 mL/min (>90) BUN/Creatinine Ratio 13.3 (10.0-20.0) Serum Glucose 87 mg/dL (74-106) Calcium Level 9.0 mg/dL (8.7-10.4) Total Bilirubin 2.5 mg/dL (0.2-1.0) Aspartate Amino Transferase (AST) < 8 U/L (13-40) Alanine Aminotransferase (ALT) < 9 U/L (7-40) Alkaline Phosphatase 62 U/L (46-116) Total Protein 6.6 g/dL (5.7-8.2) Albumin 4.1 g/dL (3.2-4.8) Urine Color Light-yellow (Yellow) Urine Clarity Clear (Clear) Urine pH 5.5 (5.0-9.0) Urine Specific [place] 1.019 (1.001-1.035) Urine Protein Negative (Negative) Urine Ketones Negative (Negative) Urine Blood Negative /uL (Negative) Urine Nitrite Negative (Negative) Urine Bilirubin Negative (Negative) Urine Urobilinogen Normal mg/dL (Negative) Urine Leukocyte Esterase Negative /uL (Negative) Urine RBC 1 /hpf (0 - 3) Urine Microscopic WBC < 1 /HPF (0-3) Urine Squamous Epithelial Cells None seen /hpf (<5) Urine Bacteria None seen /hpf (None Seen) Urine Mucus Few (None Seen) Urine Glucose Normal mg/dL (Normal) Urine Opiates Screen Neg (NEGATIVE) Urine Fentanyl Screen Neg (NEGATIVE) Urine Barbiturates Screen Neg (NEGATIVE) Urine Phencyclidine Screen Neg (NEGATIVE) Urine Amphetamines Screen Neg (NEGATIVE) Urine Benzodiazepines Screen Neg (NEGATIVE) Urine Cocaine Screen Neg (NEGATIVE) Urine Cannabinoids Screen Neg (NEGATIVE) Stool Occult Blood Negative (Negative) Stool Occult Blood Sample #3 (Negative) Influenza Type A Antigen Negative (Negative) Influenza Type B Antigen Negative (Negative) SARS-CoV-2 Antigen (Rapid) Negative (NEGATIVE) Test 11/09/24 22:17 11/09/24 19:10 Reticulocyte Count (auto) 4.23 % (0.5-1.5) Fibrinogen 299 mg/dL (177-375) D-Dimer, Quantitative < 0.19 mg/L FEU (0.0-0.49) Magnesium Level 2.3 mg/dL (1.6-2.6) Plasma/Serum Blood Alcohol 4.7 mg/dL (<10) Platelet Estimate Adequate Hypochromasia (manual) Marked Anisocytosis (manual) Moderate Microcytosis Marked Tear Drop Cells Few Ovalocytes Moderate Schistocytes Moderate Prothrombin Time 10.9 sec (9.3-11.8) Prothrombin Time INR 1.03 (0.9-1.15) Activated Partial Thromboplast Time 24.3 SEC (24.5-34.5) Iron Level 12 ug/dL (65-175) Total Iron Binding Capacity 365 ug/dL (250-425) Percent Iron Saturation 3.3 % (20-55) Ferritin 2.2 ng/mL (22-322) B-Type Natriuretic Peptide 102.61 pg/mL (0-100) Thyroid Stimulating Hormone (TSH) 2.99 uIU/mL (0.55-4.78) Other Laboratory Tests 11/10/24 06:24 Brief Hx & Hospital Course: This is a 44 years old male with past medical history of anemia came to emergency department because of abnormal lab. According to the patient his primary care physician sent him to lab for annual lab draw. The lab called him next day and advised him to come to emergency department for further evaluation. In the emergency department his hemoglobin was 5.3. The patient reports he has been a longstanding chronic anemia for 10 years, which required multiple transfusions and underwent many procedures to workup for anemia such as colonoscopy, endoscopy and it all inconclusive. His last colonoscopy endoscopy was 14 months ago and it was negative for any acute bleeding. Patient reports of dizziness on and off. Patient had take iron pill every day. However from the last two weeks he did not take iron pills. The patient was admitted. The patient was transfused two packed red blood cell. I was in process of discharge patient home however the patient grew inpatient and left against medical advice. Physical exam prior to signing out against medical advice: HEENT: Normocephalic atraumatic pupils equal react to light and accommodation. Extraocular muscles intact, conjunctiva pink, oropharynx moist, no thrush, no exudate. Lymphatic: No lymphadenopathy Cardiovascular exam: S1, S2 was heard. No murmurs, rubs, gallops Lung: Clear on auscultation bilaterally, no wheeze, rale, rhonchi. GI: Abdominal soft, nondistended, nontenderness, positive bowel sounds. Extremity: No crepitus, cyanosis, edema. Pedal pulses present bilateral. Full range of motion. Skin: Normal turgor, no rash. Psych: Alert, oriented x3. Neurology: No focal deficits, cranial nerve II to XII grossly intact. Condition at Discharge: Guarded Final Diagnosis/Problems List # chronic microcytic, hypochromic red deficiency anemia Discharge Disposition: AMA Discharge Statement: "Patient was advised to return to the ER or call 911 if any headaches, dizziness, shortness of breath, chest pain, abdominal pain, bleeding, fevers, or worsening of medical condition. Patient was counseled about treatment plan, medications, possible side effects, patientverbalized understanding. All questions were answered to the best of my ability. This discharge took greater then 30 minutes in planning, reviewing documentation, counseling the patient, and discussing with other team members." ASSESSMENT ASSESSMENT Assessment Date of Service: Nov 11, 2024 Billing Provider: MEG CORTEZ MD Common Visit Codes: 61568-RRX/OBS DISCH DAY >30min MEG CORTEZ MD Nov 11, 2024 12:54
== END 2024-11-11 11:50 | disposition left against medical advice (07) | DRG 663 ==
LOC: ER 18:25 → OVERFLOW 20:00 → WEST WING 11-10 09:59
PROVIDERS: ATTEND Emergency Medicine
PROC: 30233N1 Transfusion of Nonautologous Red Blood Cells into Peripheral Vein, Percutaneous Approach (ICD-10-PCS; principal; 2024-11-09)
DX: D50.9 Iron deficiency anemia, unspecified (principal); Z20.822 Contact with and (suspected) exposure to COVID-19; Z53.29 Procedure and treatment not carried out because of patient's decision for other reasons; Z79.899 Other long term (current) drug therapy
CPT/HCPCS: 36415; 74176; 80048; 80053; 80307; 80320; 81001; 82270; 82728; 83010; 83540; 83550; 83735; 83880; 84443; 85025; 85045; 85379; 85384; 85610; 85730; 86850; 86870; 86900; 86901; 86902; 86922; 87426; 87804; 93306; 99291; G0378; J1756; J2470

== ENCOUNTER 2025-08-07 19:19 | Inpatient (IN) | payer MEDICAID ==
[~2025-08-07] VITALS: Ht 160 cm; Wt 85.2 kg
[~2025-08-07 19:19] MED LIST changes: +OMEP20TA PO
--- NOTE | 2025-08-07 19:56 | ED.PDOC ---
History of Present Illness HPI Comments 45 year old male with PMHx chronic anemia presents to the ED with a chief complaint of dizziness onset 1 week. Patient states he has been experiencing dizziness as well as generalized weakness fo the past week. Patient states since this morning he has been experiencing chest discomfort, generalized body aches, intermittent shortness of breath. He recently had iron transfusions with museum guide, has follow up appointment in August. Denies nausea, vomiting, diarrhea, headache, chest pain, shortness of breath, numbness/tingling, fever, chills. No other symptoms or modifying factors present at this time. Chief Complaint: Dizziness Time Seen by MD: 19:45 Reviewed Notes: Medications, Allergies Allergies: Coded Allergies: NO KNOWN ALLERGIES (Unverified , 04/28/24) Home Meds Reported Medications Omeprazole (Gnp Omeprazole) 20 Mg Tab, 1 TAB PO DAILY, #90 TAB 1 Refill 11/10/24 Ferrous Sulfate (Ferrous Sulfate) 325 Mg Tab, 1 TAB PO BID 04/29/24 Information Source: Patient Mode of Arrival: Ambulatory Severity: Moderate Timing: Days Duration: Since onset Prehospital treatment: None Past Medical History PAST MEDICAL HISTORY: Anemia Surgical History: Denies all surgeries Family History Family History: Reviewed,noncontributory to illness, Unknown Social History Smoker: Secondhand Alcohol: Denies ETOH Use Drugs: Denies Drug Use Lives In: Home Constitutional: reports: weakness, others (generalzied body pain); denies: chills, diaphoresis, fatigue, fever, malaise, sweats EENTM: denies: blurred vision, double vision, ear bleeding, ear discharge, ear drainage, ear pain, ear ringing, eye pain, eye redness, hearing loss, mouth pain, mouth swelling, nasal discharge, nose bleeding, nose congestion, nose pain, photophobia, tearing, throat pain, throat swelling, voice changes, others Respiratory: reports: shortness of breath; denies: cough, hemoptysis, orthopnea, SOB at rest, SOB with excertion, stridor, wheezing, others Cardiovascular: reports: chest pain; denies: dizzy spells, diaphoresis, Dyspnea on exertion, edema, irregular heart beat, left arm pain, lightheadedness, palpitations, PND, syncope, others Gastrointestinal: denies: abdomen distended, abdominal pain, blood streaked bowels, constipated, diarrhea, dysphagia, difficulty swallowing, hematemesis, melena, nausea, poor appetite, poor fluid intake, rectal bleeding, rectal pain, vomiting, others Genitourinary: denies: burning, dysuria, flank pain, frequency, hematuria, inc ontinence, penile discharge, penile sore, pain, testicle pain, testicle swelling, urgency, others Neurological: reports: dizziness, weakness; denies: fainting, headache, left sided numbness, left sided weakness, numbness, paresthesia, pre-existing deficit, right sided numbness, right sided weakness, seizure, speech problems, tingling, tremors, others Musculoskeletal: denies: back pain, gout, joint pain, joint swelling, muscle pain, muscle stiffness, neck pain, others Integumetry: denies: bruises, change in color, change in hair/nails, dryness, laceration, lesions, lumps, rash, wounds, others Allergic/Immunocompromised: denies: Difficulty Healing, Frequent Infections, Hives, Itching, others Hematologic/Lymphatic: denies: anemia, blood clots, easy bleeding, easy bruising, swollen glands, others Endocrine: denies: excessive hunger, excessive sweating, excessive thirst, excessive urination, flushing, intolerance to cold, intolerance to heat, unexplained weight gain, unexplained weight loss, others Psychiatric: denies: anxiety, bipolar disorder, depression, hopeless, panic disorder, schizophrenia, sleepless, suicidal, others All Other Systems: Reviewed and Negative Physical Exam General Appearance: No Apparent Distress, Normal HEENT: Normal ENT Inspection, Pharynx Normal, TMs Normal Neck: Full Range of Motion, Non-Tender, Normal, Normal Inspection Respiratory: Chest Non-Tender, Lungs Clear, No Accessory Muscle Use, No Respiratory Distress, Normal Breath Sounds Cardiovascular: No Edema, No JVD, No Murmur, No Gallop, Normal Peripheral Pulses, Regular Rate/Rhythm Breast Exam: Deferred Gastrointestinal: No Organomegaly, Non Tender, No Pulsatile Mass, Normal Bowel Sounds, Soft Genitalia: Deferred Pelvic: Deferred Rectal: Deferred Extremities: No calf tenderness, Normal capillary refill, Normal inspection, Normal range of motion, Non-tender, No pedal edema Musculoskeletal : Apperance: Normal Neurologic: Alert, pulverizer II-XII nml as Tested, No Motor Deficits, Normal Affect, Normal Mood, No Sensory Deficits Cerebellar Function: Normal Reflexes: Normal Skin: Dry, Normal Color, Warm Lymphatic: No Adenopathy Was a procedure done? Was a procedure done?: No Differential Dx Considerations may include: DDX includes but not limited to: symptomatic anemia, sepsis, dehydration, electrolyte abnormality, coronary ischemia, infection and others X-Ray, Labs, Meds, VS Vital Signs Date Time Temp Pulse Resp B/P (MAP) Pulse Ox O2 Delivery O2 Flow Rate FiO2 08/07/25 21:38 79 08/07/25 21:30 98.3 86 20 110/39 (62) 100 98.3 121/33 (62) 08/07/25 19:28 99.2 95 16 123/80 (94) 100 99.2 08/07/25 19:22 99.2 95 16 123/80 100 99.2 Lab Test 08/07/25 20:40 08/07/25 19:39 Range/Units Troponin I High Sensitivity 3 L 3 L </=54 ng/L White Blood Count 10.1 4.4-10.8 10^3/uL Red Blood Count 3.78 L 4.5-5.90 10^6/uL Hemoglobin 5.3 *L 13.5-17.5 g/dL Hematocrit 21.1 L 41.0-53.0 % Mean Corpuscular Volume 55.8 L 80.0-100.0 fL Mean Corpuscular Hemoglobin 14.0 L 28.0-32.0 pg Mean Corpuscular Hemoglobin Concent 25.1 L 32.0-36.0 g/dL Red Cell Distribution Width 27.2 H 11.8-14.3 % Platelet Count 482 H 140-450 10^3/uL Mean Platelet Volume 8.6 6.9-10.8 fL Neutrophils (%) (Auto) 72.2 37.0-80.0 % Lymphocytes (%) (Auto) 18.8 10.0-50.0 % Monocytes (%) (Auto) 7.2 0.0-12.0 % Eosinophils (%) (Auto) 0.9 0.0-7.0 % Basophils (%) (Auto) 0.9 0.0-2.0 % Neutrophils # (Auto) 7.3 1.6-8.6 10 ^3/uL Lymphocytes # (Auto) 1.9 0.4-5.4 10 ^3/uL Monocytes # (Auto) 0.7 0-1.3 10 ^3/uL Eosinophils # (Auto) 0.1 0-0.8 10 ^3/uL Basophils # (Auto) 0.1 0-0.2 10 ^3/uL Nucleated Red Blood Cells 1.4 % Sodium Level 140 136-145 mmol/L Potassium Level 3.9 3.5-5.1 mmol/L Chloride Level 104 98-107 mmol/L Carbon Dioxide Level 25 20-31 mmol/L Anion Gap 11 5-15 Blood Urea Nitrogen 17 9-23 mg/dL Creatinine 0.98 0.700-1.30 mg/dL Glomerular Filtration Rate Calc 96 >90 mL/min BUN/Creatinine Ratio 17.3 10.0-20.0 Serum Glucose 101 74-106 mg/dL Calcium Level 8.9 8.7-10.4 mg/dL Iron Level Pending Total Iron Binding Capacity Pending Percent Iron Saturation Pending Total Bilirubin 2.1 H 0.2-1.0 mg/dL Aspartate Amino Transferase (AST) 13 13-40 U/L Alanine Aminotransferase (ALT) 11 7-40 U/L Alkaline Phosphatase 71 46-116 U/L Total Protein 7.5 5.7-8.2 g/dL Albumin 4.5 3.2-4.8 g/dL [place] [id number] Ph: [phone] DIAGNOSTIC IMAGING Diagnostic Imaging Report : [id number] Signed PATIENT: ROBINSON SHELLEY ACCT: [id number] UNIT: [id number] : 1980 LOC: ER ROOM / BED: / AGE / SEX: 45 / M ADM STATUS: REG ER SERVICE 31 ORDERING PHYSICIAN: ALINA SIDHU MD PROCEDURE(s): HWOCT - HEAD WITHOUT CONTRAST REASON: vertigo ORDER NUMBER(s): [id number], ACCESSION NUMBER(s): [id number] COMPUTERIZED TOMOGRAPHY OF THE HEAD WITHOUT CONTRAST REASON FOR STUDY: vertigo COMPARISON: None TECHNIQUE: Helical tomographic scans were obtained through the brain. 2-D coronal and sagittal reformatted images are provided. Radiation optimization: All CT scans at this facility use at least one of these dose optimization techniques: Automated exposure control mA and/or kV adjustment per patient size (includes targeted exams where dose is matched to clinical indication) or iterative reconstruction. RADIATION DOSE: CTDI: 52 mGy DLP: 921 mGy-cm FINDINGS: No suspicious intracranial hyperdensity to suggest acute blood. There is no mass effect nor midline shift. There is no hydrocephalus. The suprasellar cistern is intact. The calvarium is intact. The visualized mastoid air cells and paranasal sinuses are clear. IMPRESSION: No acute intracranial abnormality. ATED BY: AQUILES YOUNG MD DICTATED DATE/TIME: 08/07/252031 SIGNED BY: AQUILES YOUNG MD SIGNED DATE/TIME: 08/07/252031 CC: Time of 1ST Reevaluation: 20:15 Reevaluation 1ST: Unchanged Patient Education/Counseling: Diagnosis, Treatment, Prognosis Family Education/Counseling: No Family Present SEPSIS Sepsis Screen Date sepsis recognized/suspect: Aug 07, 2025 Time Sepsis recognized/suspect: 1925 Recent Procedure: No On Antibiotic Therapy: No Respiratory Rate >20: No Heart Rate >90: Yes Temp<36 C (96.8 F) or >38.3 C: No SBP <90 or MAP <65 mmHG: No New Acute Mental Status Change: No Is the patient on CPAP, BIPAP,: No Physician Orders Head Without Contrast (08/07/25 19:32) Iron Panel (08/07/25 21:32) Vital Signs Date Time Temp Pulse Resp B/P (MAP) Pulse Ox O2 Delivery O2 Flow Rate FiO2 08/07/25 21:38 79 08/07/25 21:30 98.3 86 20 110/39 (62) 100 98.3 121/33 (62) 08/07/25 19:28 99.2 95 16 123/80 (94) 100 99.2 08/07/25 19:22 99.2 95 16 123/80 100 99.2 Laboratory Tests Test 08/07/25 19:39 White Blood Count 10.1 10^3/uL (4.4-10.8) Departure 1 Departure Time of Disposition: 21:49 Impression: Primary Impression: Severe anemia Additional Impression: Microcytic anemia Disposition: ADMITTED INPATIENT Condition: Guarded Comments 45 yo male with h/o severe anemia, now with worsening symptoms. I suspect iron deficiency. Patient has had prior endoscopy with no known source of bleeding found. Pt is scheduled to see another GI doctor for repeat colonoscopy. Pt will need admission for blood transfusion and further workup Critical Care Note Critical Care Time?: Yes (35 min-critical care time only) Critical care comment: Total critical care time: Approximately 36 minutes Due to a high probability of clinically significant, life threatening deterioration, the patient required my highest level of preparedness to intervene emergently and I personally spent this critical care time directly and personally managing the patient. This critical care time included obtaining a history; examining the patient; pulse oximetry; ordering and review of studies; arranging urgent treatment with development of a management plan; evaluation of patient's response to treatment; frequent reassessment; and, discussions with ot her providers. This critical care time was performed to assess and manage the high probability of imminent, life-threatening deterioration that could result in multi-organ failure. It was exclusive of separately billable procedures and treating other patients. Stability Stability form required: No Heart Score Heart Score: Heart Score Response (Comments) Value History N/A 0 EKG N/A 0 Age N/A 0 Risk Factors N/A 0 Troponin N/A 0 Total 0 I personally scribed for ALINA SIDHU MD ([email or web address]) on 08/07/25 at 19:56. Electronically submitted by Camila Sunshine ([email or web address]). I personally scribed for ALINA SIDHU MD ([email or web address]) on 08/07/25 at 21:28. Electronically submitted by Camila Sunshine ([email or web address]). ALINA SIDHU MD Aug 07, 2025 19:56
[2025-08-07 19:57] LABS: Mean Corpuscular Hemoglobin 14.0 pg (28.0-32.0); Nucleated Red Blood Cells % 1.4 %
[2025-08-07 19:59] LABS: Hematocrit 21.1 % (41.0-53.0); Mean Corpuscular Volume 55.8 fL (80.0-100.0)
[2025-08-07 20:07] LABS: Hemoglobin 5.3 g/dL (13.5-17.5)
[2025-08-07 20:16] LABS: Alanine Aminotransferase 11 U/L (7-40); Albumin 4.5 g/dL (3.2-4.8); Alkaline Phosphatase 71 U/L (46-116); Anion Gap 11 (5-15); BUN/Creatinine Ratio 17.3 (10.0-20.0); Blood Urea Nitrogen 17 mg/dL (9-23); Calcium 8.9 mg/dL (8.7-10.4); Carbon Dioxide 25 mmol/L (20-31); Chloride 104 mmol/L (98-107); Glucose 101 mg/dL (74-106); Potassium 3.9 mmol/L (3.5-5.1); Sodium 140 mmol/L (136-145); Total Protein 7.5 g/dL (5.7-8.2)
[2025-08-07 20:20] LABS: Bilirubin, Total 2.1 mg/dL (0.2-1.0)
--- NOTE | 2025-08-07 20:34 | DVH ---
COMPUTERIZED TOMOGRAPHY OF THE HEAD WITHOUT CONTRAST REASON FOR STUDY: vertigo COMPARISON: None TECHNIQUE: Helical tomographic scans were obtained through the brain. 2-D coronal and sagittal reformatted images are provided. Radiation optimization: All CT scans at this facility use at least one of these dose optimization techniques: Automated exposure control mA and/or kV adjustment per patient size (includes targeted exams where dose is matched to clinical indication) or iterative reconstruction. RADIATION DOSE: CTDI: 52 mGy DLP: 921 mGy-cm FINDINGS: No suspicious intracranial hyperdensity to suggest acute blood. There is no mass effect nor midline shift. There is no hydrocephalus. The suprasellar cistern is intact. The calvarium is intact. The visualized mastoid air cells and paranasal sinuses are clear. IMPRESSION: No acute intracranial abnormality.
--- NOTE | 2025-08-07 21:29 | ECG ---
[facility] Test Date: 2025-08-07 Test Time: 21:24:14 Pat Name: ROBINSON SHELLEY Department: [facility] ED Patient ID: [id number] Room: 0297 Gender: M [employer]: AMARJIT : 1980 Requested By: ALINA SIDHU Order Number: [id number] Reading MD: Ko Bean Measurements Intervals [place] Rate: 79 P: 19 HI: 159 QRS: -3 QRSD: 92 T: 19 QT: 372 QTc: 427 Interpretive Statements Sinus rhythm Abnormal R-wave progression, early transition Electronically Signed On 08-13-2025 14:47:09 PST by Ko Bean Please click the below link to view image of tracing.
[2025-08-07 22:09] LABS: Total Iron Binding Capacity 388.0 ug/dL (250-425)
[2025-08-07 22:14] LABS: Iron 15.0 ug/dL (65-175)
[2025-08-07 22:39] VITALS: PULSE 85; RESP 18; O2SAT 99
[2025-08-07 22:39] LABS: Anisocytosis Moderate
[2025-08-07 22:41] LABS: Tear Drop Cells MODERATE
[2025-08-07] MEDS ORDERED: ACETAMINOPHEN 325 MG TAB PO PRN (23:00)
[2025-08-07] MEDS ORDERED: ONDANSETRON HCL 4 MG/2 ML VIAL IV PRN (23:00)
[2025-08-08] VITALS (18 sets, daily range): BP systolic 91–130; BP diastolic 40–73; PULSE 66–89; RESP 16–18; TEMP 97.6–98.8; O2SAT 96–100
[2025-08-08] MEDS ORDERED: TAMS-35 PO (00:55)
[2025-08-08] MEDS ORDERED: CHOL20007 OR (00:55)
--- NOTE | 2025-08-08 04:41 | DVHHP2 ---
History of Present Illness Reason for Visit: Dizziness History of Present Illness 45-year-old male presents for evaluation of dizziness. Patient reports a one- week history of generalized weakness with fatigue and dizziness. Patient reports a history of anemia with frequent blood and iron transfusions. He reports having a colonoscopy which was negative. Denies chest pain or shortness for breath. Past Medical History Anemia Past Surgical History Denies Family History Noncontributory Smoke: No ALCOHOL: none Drugs: None Lives: with Family Review of Systems Review of Systems Review of systems are currently negative otherwise addressed in HPI. Allergies: Coded Allergies: NO KNOWN ALLERGIES (Unverified , 04/28/24) Medications Current Medications Medications Dose Ordered Sig/Kimberly Route Start Time Stop Time Status Last Admin Dose Admin Ondansetron HCl 4 mg Q4HP PRN IV 08/07/25 23:00 Acetaminophen 650 mg Q6HP PRN PO 08/07/25 23:00 Exam Vital Signs Vital Signs Date Time Temp Pulse Resp B/P (MAP) Pulse Ox O2 Delivery O2 Flow Rate FiO2 08/08/25 00:45 97.6 89 17 118/50 (72) 100 97.6 08/08/25 00:11 Room Air* 0 21 Exam Gen: 45-year-old male in mild distress Skin: Warm, dry, normal color and texture, no rash. HEENT: Normocephalic atraumatic, mucous membranes moist and pink. Neck: Cervical and supraclavicular nodes normal without enlargement, trachea is midline, thyroid gland is normal without masses. Pulmonary: Clear to auscultation and percussion bilaterally. Cardiac: Regular rate and rhythm. No murmur Abdomen: Soft, nontender, nondistended, bowel sounds present all 4 quadrants, no guarding, no rigidity, no organomegaly. Extremities: No cyanosis, clubbing, no edema Neuro: Cranial nerves II through XII grossly intact, normal affect and speech, no focal motor deficits. Labs/Xrays ORDERING PHYSICIAN: ALINA SIDHU MD PROCEDURE(s): HWOCT - HEAD WITHOUT CONTRAST REASON: vertigo ORDER NUMBER(s): [id number], ACCESSION NUMBER(s): [id number] COMPUTERIZED TOMOGRAPHY OF THE HEAD WITHOUT CONTRAST REASON FOR STUDY: vertigo COMPARISON: None TECHNIQUE: Helical tomographic scans were obtained through the brain. 2-D coronal and sagittal reformatted images are provided. Radiation optimization: All CT scans at this facility use at least one of these dose optimization techniques: Automated exposure control mA and/or kV adjustment per patient size (includes targeted exams where dose is matched to clinical indication) or iterative reconstruction. RADIATION DOSE: CTDI: 52 mGy DLP: 921 mGy-cm FINDINGS: No suspicious intracranial hyperdensity to suggest acute blood. There is no mass effect nor midline shift. There is no hydrocephalus. The suprasellar cistern is intact. The calvarium is intact. The visualized mastoid air cells and paranasal sinuses are clear. IMPRESSION: No acute intracranial abnormality. Labs Test 08/07/25 20:40 08/07/25 19:39 Range/Units Troponin I High Sensitivity 3 L </=54 ng/L White Blood Count 10.1 4.4-10.8 10^3/uL Red Blood Count 3.78 L 4.5-5.90 10^6/uL Hemoglobin 5.3 *L 13.5-17.5 g/dL Hematocrit 21.1 L 41.0-53.0 % Mean Corpuscular Volume 55.8 L 80.0-100.0 fL Mean Corpuscular Hemoglobin 14.0 L 28.0-32.0 pg Mean Corpuscular Hemoglobin Concent 25.1 L 32.0-36.0 g/dL Red Cell Distribution Width 27.2 H 11.8-14.3 % Platelet Count 482 H 140-450 10^3/uL Mean Platelet Volume 8.6 6.9-10.8 fL Neutrophils (%) (Auto) 72.2 37.0-80.0 % Lymphocytes (%) (Auto) 18.8 10.0-50.0 % Monocytes (%) (Auto) 7.2 0.0-12.0 % Eosinophils (%) (Auto) 0.9 0.0-7.0 % Basophils (%) (Auto) 0.9 0.0-2.0 % Neutrophils # (Auto) 7.3 1.6-8.6 10 ^3/uL Lymphocytes # (Auto) 1.9 0.4-5.4 10 ^3/uL Monocytes # (Auto) 0.7 0-1.3 10 ^3/uL Eosinophils # (Auto) 0.1 0-0.8 10 ^3/uL Basophils # (Auto) 0.1 0-0.2 10 ^3/uL Nucleated Red Blood Cells 1.4 % Platelet Estimate Increased Large Platelets Few Hypochromasia (manual) Marked Poikilocytosis (manual) Moderate Anisocytosis (manual) Moderate Microcytosis Marked Tear Drop Cells Moderate Schistocytes Few Sodium Level 140 136-145 mmol/L Potassium Level 3.9 3.5-5.1 mmol/L Chloride Level 104 98-107 mmol/L Carbon Dioxide Level 25 20-31 mmol/L Anion Gap 11 5-15 Blood Urea Nitrogen 17 9-23 mg/dL Creatinine 0.98 0.700-1.30 mg/dL Glomerular Filtration Rate Calc 96 >90 mL/min BUN/Creatinine Ratio 17.3 10.0-20.0 Serum Glucose 101 74-106 mg/dL Calcium Level 8.9 8.7-10.4 mg/dL Iron Level 15 L 65-175 ug/dL Total Iron Binding Capacity 388 250-425 ug/dL Percent Iron Saturation 3.9 L 20-55 % Total Bilirubin 2.1 H 0.2-1.0 mg/dL Aspartate Amino Transferase (AST) 13 13-40 U/L Alanine Aminotransferase (ALT) 11 7-40 U/L Alkaline Phosphatase 71 46-116 U/L Total Protein 7.5 5.7-8.2 g/dL Albumin 4.5 3.2-4.8 g/dL SEPSIS Sepsis Screen Date sepsis recognized/suspect: Aug 07, 2025 Time Sepsis recognized/suspect: 2257 Recent Procedure: No On Antibiotic Therapy: No Respiratory Rate >20: No Heart Rate >90: No Temp<36 C (96.8 F) or >38.3 C: No SBP <90 or MAP <65 mmHG: No New Acute Mental Status Change: No Is the patient on CPAP, BIPAP,: No Physician Orders Type And Screen (08/07/25 22:47) Regular Diet (08/08/25 Breakfast) Admit (08/07/25 22:47) Ondansetron Hcl (Zofran) (08/07/25 23:00) Complete Blood Count (08/08/25 04:00) Condition: Stable (08/07/25 22:47) Acetaminophen Tablet (Tylenol Tablet) (08/07/25 23:00) Bedrest With Bathroom Privileg (08/07/25 22:47) Antibody Identification (08/07/25 23:09) Vital Signs Date Time Temp Pulse Resp B/P (MAP) Pulse Ox O2 Delivery O2 Flow Rate FiO2 08/08/25 00:45 97.6 89 17 118/50 (72) 100 97.6 08/08/25 00:11 Room Air* 0 21 08/07/25 23:22 106/49 (68) 08/07/25 23:18 98.7 85 23 106/49 (68) 99 98.7 08/07/25 23:17 103/47 (65) 08/07/25 23:15 112/56 (74) 08/07/25 22:39 99.1 87 27 105/41 (62) 99 99.1 08/07/25 22:39 85 18 99 Room Air* 0 21 08/07/25 21:38 79 08/07/25 21:30 98.3 86 20 110/39 (62) 100 98.3 121/33 (62) Laboratory Tests Test 08/07/25 19:39 White Blood Count 10.1 10^3/uL (4.4-10.8) Assessment/Plan Assessment/Plan Assessment Symptomatic anemia Microcytic anemia Plan Admit the patient to [facility] to the hospitalist Transfuse 2 units of packed red cells Resume home medications Continue treatment per orders. Plan discussed with: Patient My Orders Orders - DOROTA GASTELUM Procedure Category Date Status Time Type And Screen BBK 08/07/25 In Process 22:47 Regular Diet DIET 08/08/25 Transmitted Breakfast Admit ADMIT 08/07/25 Transmitted 22:47 Ondansetron Hcl PHA 08/07/25 In Process (Zofran) 23:00 Complete Blood Count LAB 08/08/25 Logged 04:00 Condition: Stable LANDON 08/07/25 In Process 22:47 Acetaminophen Tablet PHA 08/07/25 In Process (Tylenol Tablet) 23:00 Bedrest With Bathroom LANDON 08/07/25 In Process Privileg 22:47 Antibody BBK 08/07/25 In Process Identification 23:09 Date of Service: Aug 07, 2025 Billing Provider: DOROTA GASTELUM Common Visit Codes: [id number] INP/OBS CARE (MOD) DOROTA GASTELUM AGACNP Aug 08, 2025 04:41
[2025-08-08 09:07] LABS: Hematocrit 22.7 % (41.0-53.0); Mean Corpuscular Hemoglobin 15.9 pg (28.0-32.0); Mean Corpuscular Volume 59.1 fL (80.0-100.0); Nucleated Red Blood Cells % 1.1 %
[2025-08-08 09:09] LABS: Hemoglobin 6.1 g/dL (13.5-17.5)
[2025-08-08 09:20] LABS: Urine Protein, UAD Negative (Negative)
[2025-08-08 09:21] LABS: INR 1.06 (0.9-1.15); Partial Thromboplastin Time 24.5 SEC (24.5-34.5); Prothrombin Time 11.2 sec (9.3-11.8)
[2025-08-08 09:40] LABS: Anisocytosis Marked; Ovalocytes FEW; Polychromasia Slight; Tear Drop Cells MODERATE
[2025-08-08 09:43] LABS: Amphetamine Screen, Urine Neg (NEGATIVE); Barbiturate Scree,Urine Neg (NEGATIVE); Benzodiazephine Screen, Urine Neg (NEGATIVE); Cannabinoid Screen, Urine Neg (NEGATIVE); Cocaine Screen, Urine Neg (NEGATIVE); Opiate Scree,Urine Neg (NEGATIVE); Phencyclidine Screen, Urine Neg (NEGATIVE)
--- NOTE | 2025-08-08 13:03 | DVHPNRES ---
Progress Note Date Seen: Aug 08, 2025 Resident Creating Document: JONATHON PAUL RESIDENT Medical Necessity Reason Pt with a Central, PICC or Fol: No Subjective Review of Systems Patient is a 45-year-old male with past medical history of GERD, severe anemia, who presented to the ED with chief complaints of shortness of breath, dizziness, almost passing out, And fatigue with generalized weakness. Patient states that he has had multiple colonoscopies and endoscopies in the last 10 years which did not reveal anything. 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 Patient has a appointment with gastro group on September 25 for Colonoscopy. patient denies any constipation, blood in stools, hematemesis, hematuria, nausea, vomiting, diarrhea , chest pain. On arrival patient's hemoglobin was 5.3 and 2 PRBCs are given. Past surgical history: Denies Family history: Reviewed, noncontributory Social history: Denies smoking, alcohol, drugs Lives with: Family PCP: Dr. Nagel Home medication: Omeprazole, iron supplement, vitamin-D, Flomax Constitutional: Denies weight loss, fever and chills. HEENT: Denies changes in vision and hearing. Respiratory: Mild shortness of breath Cardiovascular: Denies chest discomfort or palpitations GI: No abdominal distention. : Denies dysuria and urinary frequency. Musculoskeletal: Denies myalgias and joint pain Skin: Denies rash and pruritus. Neurological: Denies dizziness, headache, vision or hearing problems 08/08/2025: Patient seen at bedside. Patient reports no shortness of breath, chest pain, received 2 PRBC repeat hemoglobin showed 6.1. Patient had a bowel movement yesterday denies any blood in stools. Hemoglobin electrophoresis ordered, stool occult blood ordered. Objective vital signs Vital Sign Date Time Temp Pulse Resp B/P (MAP) Pulse Ox O2 Delivery O2 Flow Rate FiO2 08/08/25 11:02 98.0 81 16 130/40 98.0 08/08/25 08:44 99 08/08/25 00:11 Room Air* 0 21 Total Intake and Output 08/07/25 08/07/25 08/08/25 15:00 23:00 07:00 Intake Total 100 ml Balance 100 ml medications Current Medications Medications Dose Ordered Sig/Kimberly Route Start Time Stop Time Status Last Admin Dose Admin Ondansetron HCl 4 mg Q4HP PRN IV 08/07/25 23:00 Acetaminophen 650 mg Q6HP PRN PO 08/07/25 23:00 Examination General: Patient alert and oriented in person, place and time. Patient following commands. HEENT: Normocephalic, atraumatic, moist mucous membranes Respiratory/pulmonary: Clear lungs bilaterally, vesicular murmurs present in almost all lung gallardo, no associated crackles or wheezes. Cardiovascular: Normal heart sounds S1 and S2 with no associated murmurs Abdomen: Abdomen nondistended, there is no pain to palpation in any of the abdominal quadrants, no palpable masses. Extremities: There is no peripheral edema present at the lower extremities. Peripheral Pulses: 3+ Radial (R). 3+ Radial (L). 3+ Dorsalis pedis (R). 3+ Dorsalis pedis(L) Skin: No rashes or pruritus, there is no sacral edema present at this time. Neurological: Intact cranial nerves with no focal neurologic deficits laboratory and microbiology Laboratory Tests 08/08/25 08:21 08/07/25 19:39 Test 08/07/25 19:39 Range/Units Serum Glucose 101 74-106 mg/dL Problem List/Assessment/Plan Problem List/Assessment/Plan Acute on chronic microcytic hypochromic anemia Iron deficiency anemia - hemoglobin 5.3 on admission - stool occult blood - Two PRBC given - monitor H&H - hemoglobin electrophoresis to rule out thalassemia - iron level 15 - Ferritin 3.5 Vitamin D deficiency - vitamin-D 5000 unit Goals of care addressed with the patient for more than 27 minutes: Full code status Case discussed with Dr. Cortez , patient and nurse Plan discussed with: Patient Date of Service: Aug 08, 2025 Billing Provider: MEG CORTEZ MD Common Visit Codes: [id number] INP/OBS CARE(HIGH) JONATHON PAUL RESIDENT Aug 08, 2025 13:03 MEG CORTEZ MD Aug 09, 2025 21:14
[2025-08-08 16:01] LABS: Hematocrit 25.0 % (41.0-53.0)
[2025-08-08 16:11] LABS: Hemoglobin 6.9 g/dL (13.5-17.5)
[2025-08-08] MEDS: ERGOCALCIFEROL 50,000 UNIT(1.25MG) CAP PO SCH (16:42)
[2025-08-09 01:00] VITALS: BP 103/65; PULSE 64; RESP 15; TEMP 98.3; O2SAT 98
[2025-08-09 05:00] VITALS: BP 104/64; PULSE 70; RESP 15; TEMP 97.8; O2SAT 97
[2025-08-09 07:03] LABS: Hemoglobin 7.8 g/dL (13.5-17.5)
[2025-08-09 07:06] LABS: Hematocrit 27.2 % (41.0-53.0); Mean Corpuscular Hemoglobin 18.0 pg (28.0-32.0); Mean Corpuscular Volume 62.5 fL (80.0-100.0); Nucleated Red Blood Cells % 0.7 %
[2025-08-09 07:43] LABS: Chloride 105 mmol/L (98-107); Potassium 4.1 mmol/L (3.5-5.1); Sodium 141 mmol/L (136-145)
[2025-08-09 07:44] LABS: Anion Gap 9 (5-15); Carbon Dioxide 27 mmol/L (20-31)
[2025-08-09 07:45] LABS: Calcium 9.1 mg/dL (8.7-10.4)
[2025-08-09 07:49] LABS: BUN/Creatinine Ratio 14.0 (10.0-20.0); Blood Urea Nitrogen 12 mg/dL (9-23); Glucose 86 mg/dL (74-106)
[2025-08-09 08:00] VITALS: PULSE 78; RESP 16; O2SAT 99
[2025-08-09 08:53] VITALS: BP 115/68; PULSE 77; RESP 16; TEMP 98.3; O2SAT 99
[2025-08-09] MEDS: IRON SUCROSE COMPLEX 110 ML IV SCH (11:50)
[2025-08-09 13:28] VITALS: BP 105/64; PULSE 69; RESP 16; TEMP 98.4; O2SAT 99
--- NOTE | 2025-08-09 14:31 | DVH ---
CHEST RADIOGRAPH Indication: post transfusion Technique: Single frontal view of the chest was obtained Comparison: None FINDINGS: Lines and Tubes: None Lungs: No focal consolidation. Pleura: No effusion. No pneumothorax. Cardiomediastinal contours: Unremarkable Bones: No acute osseous abnormality. IMPRESSION: 1. No acute cardiopulmonary disease.
--- NOTE | 2025-08-09 16:24 | DVHDSRES ---
Discharge Summary Date of Admission Resident Creating Document: JONATHON PAUL Aug 07, 2025 at 22:47 Date of Discharge: Aug 09, 2025 Admitting Diagnosis Acute on chronic microcytic hypochromic anemia Labs/Diagnostic Data: Laboratory Results Test 08/09/25 06:13 08/08/25 09:00 08/08/25 08:21 08/07/25 20:40 White Blood Count 6.2 10^3/uL (4.4-10.8) Red Blood Count 4.34 10^6/uL (4.5-5.90) Hemoglobin 7.8 g/dL (13.5-17.5) Hematocrit 27.2 % (41.0-53.0) Mean Corpuscular Volume 62.5 fL (80.0-100.0) Mean Corpuscular Hemoglobin 18.0 pg (28.0-32.0) Mean Corpuscular Hemoglobin Concent 28.8 g/dL (32.0-36.0) Red Cell Distribution Width 34.1 % (11.8-14.3) Platelet Count 316 10^3/uL (140-450) Mean Platelet Volume 8.8 fL (6.9-10.8) Neutrophils (%) (Auto) 76.6 % (37.0-80.0) Lymphocytes (%) (Auto) 14.1 % (10.0-50.0) Monocytes (%) (Auto) 7.0 % (0.0-12.0) Eosinophils (%) (Auto) 1.4 % (0.0-7.0) Basophils (%) (Auto) 0.9 % (0.0-2.0) Neutrophils # (Auto) 4.8 10 ^3/uL (1.6-8.6) Lymphocytes # (Auto) 0.9 10 ^3/uL (0.4-5.4) Monocytes # (Auto) 0.4 10 ^3/uL (0-1.3) Eosinophils # (Auto) 0.1 10 ^3/uL (0-0.8) Basophils # (Auto) 0.1 10 ^3/uL (0-0.2) Nucleated Red Blood Cells 0.7 % Sodium Level 141 mmol/L (136-145) Potassium Level 4.1 mmol/L (3.5-5.1) Chloride Level 105 mmol/L (98-107) Carbon Dioxide Level 27 mmol/L (20-31) Anion Gap 9 (5-15) Blood Urea Nitrogen 12 mg/dL (9-23) Creatinine 0.86 mg/dL (0.700-1.30) Glomerular Filtration Rate Calc 107 mL/min (>90) BUN/Creatinine Ratio 14.0 (10.0-20.0) Serum Glucose 86 mg/dL (74-106) Calcium Level 9.1 mg/dL (8.7-10.4) Urine Color Light-yellow (Yellow) Urine Clarity Clear (Clear) Urine pH 6.0 (5.0-9.0) Urine Specific [place] 1.016 (1.001-1.035) Urine Protein Negative (Negative) Urine Ketones Negative (Negative) Urine Blood Negative /uL (Negative) Urine Nitrite Negative (Negative) Urine Bilirubin Negative (Negative) Urine Urobilinogen Normal mg/dL (Negative) Urine Leukocyte Esterase Negative /uL (Negative) Urine RBC 1 /hpf (0 - 3) Urine Microscopic WBC < 1 /HPF (0-3) Urine Squamous Epithelial Cells None seen /hpf (<5) Urine Bacteria None seen /hpf (None Seen) Urine Glucose Normal mg/dL (Normal) Stool Occult Blood Neg x1 (Negative) Stool Occult Blood Sample #3 (Negative) Urine Opiates Screen Neg (NEGATIVE) Urine Fentanyl Screen Neg (NEGATIVE) Urine Barbiturates Screen Neg (NEGATIVE) Urine Phencyclidine Screen Neg (NEGATIVE) Urine Amphetamines Screen Neg (NEGATIVE) Urine Benzodiazepines Screen Neg (NEGATIVE) Urine Cocaine Screen Neg (NEGATIVE) Urine Cannabinoids Screen Neg (NEGATIVE) Platelet Estimate Adequate Polychromasia Slight Hypochromasia (manual) Marked Poikilocytosis (manual) Moderate Anisocytosis (manual) Marked Microcytosis Marked Tear Drop Cells Moderate Ovalocytes Few Prothrombin Time 11.2 sec (9.3-11.8) Prothrombin Time INR 1.06 (0.9-1.15) Activated Partial Thromboplast Time 24.5 SEC (24.5-34.5) Ferritin 3.5 ng/mL (22-322) Troponin I High Sensitivity 3 ng/L (</=54) Test 08/07/25 19:39 Large Platelets Few Schistocytes Few Iron Level 15 ug/dL (65-175) Total Iron Binding Capacity 388 ug/dL (250-425) Percent Iron Saturation 3.9 % (20-55) Total Bilirubin 2.1 mg/dL (0.2-1.0) Aspartate Amino Transferase (AST) 13 U/L (13-40) Alanine Aminotransferase (ALT) 11 U/L (7-40) Alkaline Phosphatase 71 U/L (46-116) Total Protein 7.5 g/dL (5.7-8.2) Albumin 4.5 g/dL (3.2-4.8) Other Laboratory Tests 08/09/25 06:13 Brief Hx & Hospital Course: Patient is a 45-year-old male with past medical history of GERD, severe anemia, who presented to the ED with chief complaints of shortness of breath, dizziness, almost passing out, And fatigue with generalized weakness. Patient states that he has had multiple colonoscopies and endoscopies in the last 10 years which did not reveal anything. 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 Patient has a appointment with gastro group on September 25 for Colonoscopy. patient denies any constipation, blood in stools, hematemesis, hematuria, nausea, vomiting, diarrhea , chest pain. On arrival patient's hemoglobin was 5.3 and 2 PRBCs are given. Past surgical history: Denies Family history: Reviewed, noncontributory Social history: Denies smoking, alcohol, drugs Lives with: Family PCP: Dr. Nagel [place] medication: Omeprazole, iron supplement, vitamin-D, Flomax brief hospital course: Patient came with chief complaints of dizziness, shortness of breath. Patient was found to have acute on chronic microcytic hypochromic anemia, iron deficiency anemia, hemoglobin was 5.3 on admission, transfused 3 PRBC and iron infusion was given. Monitored H and H, CBC, Hemoglobin electrophoresis ordered to rule out thalassemia. Patient's iron level was 15, ferritin level 3.5. Patient had vitamin-D deficiency and was given vitamin-D 5000 units per week. Ferrous sulfate was also given . patient wanted to leave AMA, risks were explained about patient's condition and further treatment. Patient advised of the risks and benefits of leaving AMA. Patient verbalized understanding. Patient encouraged to return to the ER if symptoms do not improve or worsen. Patient understood and signed the AMA form and left. Operations or Procedures ORDERING PHYSICIAN: ALINA SIDHU MD PROCEDURE(s): HWOCT - HEAD WITHOUT CONTRAST REASON: vertigo ORDER NUMBER(s): [id number], ACCESSION NUMBER(s): [id number] COMPUTERIZED TOMOGRAPHY OF THE HEAD WITHOUT CONTRAST REASON FOR STUDY: vertigo COMPARISON: None TECHNIQUE: Helical tomographic scans were obtained through the brain. 2-D coronal and sagittal reformatted images are provided. Radiation optimization: All CT scans at this facility use at least one of these dose optimization techniques: Automated exposure control mA and/or kV adjustment per patient size (includes targeted exams where dose is matched to clinical indication) or iterative reconstruction. RADIATION DOSE: CTDI: 52 mGy DLP: 921 mGy-cm FINDINGS: No suspicious intracranial hyperdensity to suggest acute blood. There is no mass effect nor midline shift. There is no hydrocephalus. The suprasellar cistern is intact. The calvarium is intact. The visualized mastoid air cells and paranasal sinuses are clear. IMPRESSION: No acute intracranial abnormality. ATED BY: AQUILES YOUNG MD DICTATED DATE/TIME: 08/07/252031 ORDERING PHYSICIAN: JONATHON PAUL PROCEDURE(s): CXR1 - CHEST XRAY 1 VIEW REASON: post transfusion ORDER NUMBER(s): [id number], ACCESSION NUMBER(s): [id number] CHEST RADIOGRAPH Indication: post transfusion Technique: Single frontal view of the chest was obtained Comparison: None FINDINGS: Lines and Tubes: None Lungs: No focal consolidation. Pleura: No effusion. No pneumothorax. Cardiomediastinal contours: Unremarkable Bones: No acute osseous abnormality. IMPRESSION: 1. No acute cardiopulmonary disease. Condition at Discharge: Fair Final Diagnosis/Problems List Acute on chronic microcytic hypochromic anemia Iron deficiency anemia Vitamin D deficiency Obesity BMI 33.3 Discharge Disposition: AMA Discharge Instruct/Medications Scheduled Cholecalciferol (Vitamin D3), 2,000 UNIT OR DAILY, (Reported) Ferrous Sulfate (Ferrous Sulfate), 1 TAB PO BID, (Reported) Omeprazole (Gnp Omeprazole), 1 TAB PO DAILY, (Reported) Tamsulosin Hcl (Flomax), 0.4 MG PO DAILY, (Reported) Discharge Statement: "Patient was advised to return to the ER or call 911 if any headaches, dizziness, shortness of breath, chest pain, abdominal pain, bleeding, fevers, or worsening of medical condition. Patient was counseled about treatment plan, medications, possible side effects, patientverbalized understanding. All questions were answered to the best of my ability. This discharge took greater then 30 minutes in planning, reviewing documentation, counseling the patient, and discussing with other team members." ASSESSMENT ASSESSMENT Assessment Date of Service: Aug 09, 2025 Billing Provider: MEG CORTEZ MD Common Visit Codes: [id number] DISCH DAY >30min JONATHON PAUL RESIDENT Aug 09, 2025 16:24 MEG CORTEZ MD Aug 09, 2025 21:15
[2025-08-14] MEDS ORDERED: FERROUS SULFATE 325mg EC TAB PO SCH (10:00)
== END 2025-08-09 14:45 | disposition left against medical advice (07) | DRG 663 ==
LOC: ER 19:19 → OVERFLOW 22:47 → WEST WING 23:52
PROVIDERS: ADMIT Nurse Practitioner; ATTEND Nurse Practitioner
PROC: 30233N1 Transfusion of Nonautologous Red Blood Cells into Peripheral Vein, Percutaneous Approach (ICD-10-PCS; principal; 2025-08-08)
DX: D50.9 Iron deficiency anemia, unspecified (principal); E55.9 Vitamin D deficiency, unspecified; E66.9 Obesity, unspecified; Z53.29 Procedure and treatment not carried out because of patient's decision for other reasons; F17.200 Nicotine dependence, unspecified, uncomplicated; K21.9 Gastro-esophageal reflux disease without esophagitis; Z68.33 Body mass index [BMI] 33.0-33.9, adult; Z79.899 Other long term (current) drug therapy
CPT/HCPCS: 36415; 36430; 70450; 71045; 80048; 80053; 80307; 81001; 82270; 82728; 83021; 83540; 83550; 84484; 85014; 85018; 85025; 85610; 85660; 85730; 86850; 86870; 86900; 86901; 86902; 86922; 93005; 99291; G0378; J1756

== ENCOUNTER 2025-09-10 16:06 | Inpatient (IN) | payer MEDICAID ==
[~2025-09-10] VITALS: Ht 160 cm; Wt 85.9 kg
[~2025-09-10 16:06] MED LIST changes: +CHOL20007 OR; +TAMS-35 PO
--- NOTE | 2025-09-10 16:45 | ED.PDOC ---
History of Present Illness HPI Comments This is a 45-year old male with chronic microcytic anemia, GERD and BPH who came to the ED with the chief complaint of abnormal labs. His PCP called him today as his hemoglobin was noted to be 6.7 on his last blood draw 2 weeks back. He has had a history of microcytic anemia since 10 years and has had multiple blood transfusions since then. Patient states that he has had multiple colonoscopies and endoscopies in the last 10 years which did not reveal anything. Patient has an appointment with gastro group on September 25 for Colonoscopy/ endoscopy. He follows up with Dr Glenny To outpatient, has been asked to get lab work very 2 weeks, but does not have a definitve diagnosis yet for his chronic anemia.He denies any constipation, blood in stools, hematemesis, hematuria, nausea, vomiting, diarrhea, chest pain. Chief Complaint: abnormal labs Time Seen by MD: 16:30 Allergies: Coded Allergies: NO KNOWN ALLERGIES (Unverified , 04/28/24) Home Meds Reported Medications Tamsulosin Hcl (Flomax) 0.4 Mg Cap, 0.4 MG PO DAILY, CAP 08/08/25 Cholecalciferol (VITAMIN D3) 2,000 Unit Tab, 2000 UNIT OR DAILY, TAB 08/08/25 Omeprazole (Gnp Omeprazole) 20 Mg Tab, 1 TAB PO DAILY, #90 TAB 1 Refill 11/10/24 Ferrous Sulfate (Ferrous Sulfate) 325 Mg Tab, 1 TAB PO BID 04/29/24 Information Source: Patient Mode of Arrival: Ambulatory Severity: Moderate Timing: Hours Duration: Since onset Prehospital treatment: None Past Medical History PAST MEDICAL HISTORY: Anemia, GERD Surgical History: Denies all surgeries Family History Family History: Reviewed,noncontributory to illness, Unknown Social History Smoker: Secondhand Alcohol: Denies ETOH Use Drugs: Denies Drug Use Lives In: Home Constitutional: denies: chills, diaphoresis, fatigue, fever, malaise, sweats, weakness, others EENTM: denies: blurred vision, double vision, ear bleeding, ear discharge, ear drainage, ear pain, ear ringing, eye pain, eye redness, hearing loss, mouth pain, mouth swelling, nasal discharge, nose bleeding, nose congestion, nose pain, photophobia, tearing, throat pain, throat swelling, voice changes, others Respiratory: denies: cough, hemoptysis, orthopnea, SOB at rest, shortness of breath, SOB with excertion, stridor, wheezing, others Cardiovascular: denies: chest pain, dizzy spells, diaphoresis, Dyspnea on exertion, edema, irregular heart beat, left arm pain, lightheadedness, palpitations, PND, syncope, others Gastrointestinal: denies: abdomen distended, abdominal pain, blood streaked bowels, constipated, diarrhea, dysphagia, difficulty swallowing, hematemesis, melena, nausea, poor appetite, poor fluid intake, rectal bleeding, rectal pain, vomiting, others Genitourinary: denies: burning, dysuria, flank pain, frequency, hematuria, incontinence, penile discharge, penile sore, pain, testicle pain, testicle swelling, urgency, others Neurological: denies: dizziness, fainting, headache, left sided numbness, left sided weakness, numbness, paresthesia, pre-existing deficit, right sided numbness, right sided weakness, seizure, speech problems, tingling, tremors, weakness, others Musculoskeletal: denies: back pain, gout, joint pain, joint swelling, muscle pain, muscle stiffness, neck pain, others Integumetry: denies: bruises, change in color, change in hair/nails, dryness, laceration, lesions, lumps, rash, wounds, others Allergic/Immunocompromised: denies: Difficulty Healing, Frequent Infections, Hives, Itching, others Hematologic/Lymphatic: denies: anemia, blood clots, easy bleeding, easy bruising, swollen glands, others Endocrine: denies: excessive hunger, excessive sweating, excessive thirst, excessive urination, flushing, intolerance to cold, intolerance to heat, unexplained weight gain, unexplained weight loss, others Psychiatric: denies: anxiety, bipolar disorder, depression, hopeless, panic disorder, schizophrenia, sleepless, suicidal, others Physical Exam General Appearance: Normal HEENT: Pale Conjuntivae (L), Pale Conjuntivae (R) Neck: Non-Tender, Normal Inspection Respiratory: Lungs Clear, No Respiratory Distress, Normal Breath Sounds Cardiovascular: No Edema, No Murmur, Tachycardia Breast Exam: Normal Gastrointestinal: No Organomegaly, Non Tender, No Pulsatile Mass, Normal Bowel Sounds Genitalia: Deferred Pelvic: Deferred Rectal: Deferred Extremities: Normal capillary refill, Normal inspection, Normal range of motion, Non-tender, No pedal edema Neurologic: Alert, No Motor Deficits, Normal Affect, Normal Mood, No Sensory Deficits Cerebellar Function: Normal Reflexes: Normal Skin: Normal Color Lymphatic: No Adenopathy Was a procedure done? Was a procedure done?: No Differential Dx Considerations may include: acute on chronic microcytic anemia X-Ray, Labs, Meds, VS Vital Signs Date Time Temp Pulse Resp B/P (MAP) Pulse Ox O2 Delivery O2 Flow Rate FiO2 09/10/25 16:08 98.0 103 16 124/88 100 98.0 Time of 1ST Reevaluation: 17:05 Reevaluation 1ST: Unchanged Patient Education/Counseling: Diagnosis, Treatment, Prognosis Family Education/Counseling: No Family Present SEPSIS Sepsis Screen Date sepsis recognized/suspect: Sep 10, 2025 Time Sepsis recognized/suspect: 161 Recent Procedure: No On Antibiotic Therapy: No Respiratory Rate >20: No Heart Rate >90: Yes Temp<36 C (96.8 F) or >38.3 C: No SBP <90 or MAP <65 mmHG: No New Acute Mental Status Change: No Is the patient on CPAP, BIPAP,: No Physician Orders Complete Blood Count (09/10/25 16:43) Basic Metabolic Panel (09/10/25 16:43) Vital Signs Date Time Temp Pulse Resp B/P (MAP) Pulse Ox O2 Delivery O2 Flow Rate FiO2 09/10/25 16:08 98.0 103 16 124/88 100 98.0 Departure 1 Departure Time of Disposition: 17:05 Impression: Primary Impression: Microcytic anemia Additional Impressions: Anemia Generalized weakness Disposition: 30 STILL A PATIENT Condition: Fair Critical Care Note Critical Care Time?: No Stability Stability form required: ONEAL Li RESIDENT Sep 10, 2025 16:45
[2025-09-10 17:25] LABS: Hematocrit 21.9 % (41.0-53.0); Mean Corpuscular Hemoglobin 15.7 pg (28.0-32.0); Mean Corpuscular Volume 56.2 fL (80.0-100.0); Nucleated Red Blood Cells % 0.6 %
[2025-09-10 17:27] LABS: Chloride 103 mmol/L (98-107); Potassium 3.5 mmol/L (3.5-5.1); Sodium 138 mmol/L (136-145)
[2025-09-10 17:28] LABS: Anion Gap 9 (5-15); Carbon Dioxide 26 mmol/L (20-31)
[2025-09-10 17:34] LABS: BUN/Creatinine Ratio 13.3 (10.0-20.0); Blood Urea Nitrogen 11 mg/dL (9-23)
[2025-09-10 17:36] LABS: Calcium 8.7 mg/dL (8.7-10.4); Glucose 107 mg/dL (74-106)
[2025-09-10 17:37] LABS: Hemoglobin 6.1 g/dL (13.5-17.5)
[2025-09-10 18:22] VITALS: PULSE 88; RESP 16; O2SAT 99
[2025-09-10] MEDS: ACETAMINOPHEN 325 MG TAB PO ONE (18:37)
[2025-09-10 19:09] LABS: Anisocytosis Moderate
[2025-09-10 19:11] LABS: Tear Drop Cells FEW
[2025-09-10] MEDS: FERROUS SULFATE 325mg EC TAB PO SCH (22:11)
--- NOTE | 2025-09-10 23:52 | DVHHPRES ---
History of Present Illness Resident Creating Document: JONATHON PAUL History of Present Illness Patient is a 45-year-old male with past medical history of GERD, chronic microcytic anemia, who presented to the ED with chief complaints of dizziness. His PCP called him today as his hemoglobin was noted to be 6.7 on his last blood draw 2 weeks back. He has had a history of microcytic anemia since 10 years and has had multiple blood transfusions since then. Patient states that he has had multiple colonoscopies and endoscopies in the last 10 years which did not reveal anything. Patient has a appointment with gastro group on September 25 for Colonoscopy/Endoscopy. patient denies any constipation, blood in stools, hematemesis, hematuria, nausea, vomiting, diarrhea , chest pain. On arrival patient's hemoglobin was 6.1. Previous hospitalization: hospitalized for Severe anemia in July surgical history: Denies Family history: Reviewed, noncontributory Social history: Denies smoking, alcohol, drugs Lives with: Family PCP: Dr. Nagel Home medication: Omeprazole, iron supplement, vitamin-D, Flomax Patient seen in the [facility]. Patient has no new complaints, denies any nausea, vomiting, blood in stools, hematuria, hematemesis. Patient is to get 1 PRBC. Review of Systems Constitutional: Yes: Weakness, Other (Dizziness); No: Fever, Chills, Sweats, Malaise Eyes: No: Pain, Vision change, Conjunctivae inflammation, Eyelid inflammation, Other, Redness ENT: No: Ear pain, Ear discharge, Nose pain, Nose discharge, Nose congestion, Mouth pain, Mouth swelling, Throat pain, Throat swelling, Other Respiratory: No: Cough, Dry, Shortness of breath, SOB with excertion, Wheezing, Hemoptysis, Pleuritic Pain, Sputum, Wheezing, Other Cardiovascular: No: Chest Pain, Palpitations, Orthopnea, Paroxysmal Noc. Dyspnea, Edema, Lt Headedness, Other Gastrointestinal: No: Nausea, Vomiting, Abdominal Pain, Diarrhea, Constipation, Melena, Hematochezia, Other Genitourinary: No Dysuria, No Frequency, No Incontinence, No Hematuria, No Retention, No Other Musculoskeletal: No: other, neck pain, shoulder pain, arm pain, back pain, hand pain, leg pain, foot pain Skin: No: Rash, Lesions, Jaundice, Bruising, Other Neurological: No: Weakness, Numbness, Incoordination, Change in speech, Confusion, Seizures, Other Allergies: Coded Allergies: NO KNOWN ALLERGIES (Unverified , 04/28/24) Medications Current Medications Medications Dose Ordered Sig/Kimberly Route Start Time Stop Time Status Last Admin Dose Admin Ferrous Sulfate 325 mg BID PO 09/10/25 22:00 09/10/25 22:11 325 MG Tamsulosin HCl 0.4 mg DAILY PO 09/11/25 10:00 Pantoprazole Sodium 40 mg DAILY@0600 PO 09/11/25 06:00 Acetaminophen 650 mg Q6HR PRN PO 09/11/25 00:00 Exam Vital Signs Vital Signs Date Time Temp Pulse Resp B/P (MAP) Pulse Ox O2 Delivery O2 Flow Rate FiO2 09/10/25 18:37 97.9 09/10/25 18:22 85 17 117/52 (73) 99 09/10/25 18:22 Room Air* 0 21 Exam General: Patient alert and oriented in person, place and time. Patient fo llowing commands. HEENT: Normocephalic, atraumatic, moist mucous membranes Respiratory/pulmonary: Clear lungs bilaterally, vesicular murmurs present in almost all lung gallardo, no associated crackles or wheezes. Cardiovascular: Normal heart sounds S1 and S2 with no associated murmurs Abdomen: Abdomen nondistended, there is no pain to palpation in any of the abdominal quadrants, no palpable masses. Extremities: There is no peripheral edema present at the lower extremities. Peripheral Pulses: 3+ Radial (R). 3+ Radial (L). 3+ Dorsalis pedis (R). 3+ Dorsalis pedis(L) Skin: No rashes or pruritus, there is no sacral edema present at this time. Neurological: Intact cranial nerves with no focal neurologic deficits Labs/Xrays Labs Test 09/10/25 16:54 Range/Units White Blood Count 8.5 4.4-10.8 10^3/uL Red Blood Count 3.89 L 4.5-5.90 10^6/uL Hemoglobin 6.1 *L 13.5-17.5 g/dL Hematocrit 21.9 L 41.0-53.0 % Mean Corpuscular Volume 56.2 L 80.0-100.0 fL Mean Corpuscular Hemoglobin 15.7 L 28.0-32.0 pg Mean Corpuscular Hemoglobin Concent 27.9 L 32.0-36.0 g/dL Red Cell Distribution Width 24.1 H 11.8-14.3 % Platelet Count 496 H 140-450 10^3/uL Mean Platelet Volume 8.8 6.9-10.8 fL Neutrophils (%) (Auto) 78.3 37.0-80.0 % Lymphocytes (%) (Auto) 15.9 10.0-50.0 % Monocytes (%) (Auto) 4.4 0.0-12.0 % Eosinophils (%) (Auto) 0.8 0.0-7.0 % Basophils (%) (Auto) 0.6 0.0-2.0 % Neutrophils # (Auto) 6.7 1.6-8.6 10 ^3/uL Lymphocytes # (Auto) 1.4 0.4-5.4 10 ^3/uL Monocytes # (Auto) 0.4 0-1.3 10 ^3/uL Eosinophils # (Auto) 0.1 0-0.8 10 ^3/uL Basophils # (Auto) 0.1 0-0.2 10 ^3/uL Nucleated Red Blood Cells 0.6 % Platelet Estimate Increased Hypochromasia (manual) Marked Poikilocytosis (manual) Slight Anisocytosis (manual) Moderate Microcytosis Marked Tear Drop Cells Few Schistocytes Few Sodium Level 138 136-145 mmol/L Potassium Level 3.5 3.5-5.1 mmol/L Chloride Level 103 98-107 mmol/L Carbon Dioxide Level 26 20-31 mmol/L Anion Gap 9 5-15 Blood Urea Nitrogen 11 9-23 mg/dL Creatinine 0.83 0.700-1.30 mg/dL Glomerular Filtration Rate Calc 109 >90 mL/min BUN/Creatinine Ratio 13.3 10.0-20.0 Serum Glucose 107 H 74-106 mg/dL Calcium Level 8.7 8.7-10.4 mg/dL SEPSIS Sepsis Screen Date sepsis recognized/suspect: Sep 10, 2025 Time Sepsis recognized/suspect: 2099 Recent Procedure: No On Antibiotic Therapy: No Respiratory Rate >20: No Heart Rate >90: No Temp<36 C (96.8 F) or >38.3 C: No SBP <90 or MAP <65 mmHG: No New Acute Mental Status Change: No Is the patient on CPAP, BIPAP,: No Physician Orders Obtain Consent For: (09/10/25 17:37) Type And Screen (09/10/25 17:37) Vital Signs .PER UNIT PROTOCOL (09/10/25 17:37) Administer Blood Products UD (09/10/25 17:37) Ferrous Sulfate Tablet (09/10/25 22:00) Tamsulosin Hydrochloride (Flomax) (09/11/25 10:00) Pantoprazole Tablet (Protonix Tablet) (09/11/25 06:00) Antibody Identification (09/10/25 17:51) Admit (09/10/25 22:57) Code Status (09/10/25 22:57) Complete Blood Count (09/11/25 04:00) Comprehensive Metabolic Panel (09/11/25 04:00) Condition: Serious (09/10/25 22:57) Acetaminophen Tablet (Tylenol Tablet) (09/11/25 00:00) Oxygen By Nasal Cannula (09/10/25 22:57) Stat Ekg For Chest Pain (09/10/25 22:57) Notify Md Of Changes From Base (09/10/25 22:57) Rn Mental Health For 24 Hours (09/10/25 22:57) Emergency Dysrhythmia Protocol (09/10/25 22:57) Rhythm Strips Once Every Shift (09/10/25 22:57) Vital Signs Date Time Temp Pulse Resp B/P (MAP) Pulse Ox O2 Delivery O2 Flow Rate FiO2 09/10/25 18:37 97.9 09/10/25 18:22 98.7 85 17 117/52 (73) 99 98.7 09/10/25 18:22 88 16 99 Room Air* 0 21 09/10/25 16:08 98.0 103 16 124/88 100 98.0 Laboratory Tests Test 09/10/25 16:54 White Blood Count 8.5 10^3/uL (4.4-10.8) Medications Medications Dose Ordered Sig/Kimberly Route Start Time Stop Time Status Last Admin Dose Admin Acetaminophen 650 mg ONCE ONCE PO 09/10/25 17:45 09/10/25 18:00 DC 09/10/25 18:37 650 MG Ferrous Sulfate 325 mg BID PO 09/10/25 22:00 09/10/25 22:11 325 MG Assessment/Plan Assessment/Plan Acute on chronic microcytic hypochromic anemia Iron deficiency anemia - hemoglobin 6.1 on admission - stool occult blood - one PRBC given - monitor H&H - hemoglobin electrophoresis normal last admission - check iron panel, ferritin Vitamin D deficiency - vitamin-D 5000 unit Goals of care addressed with the patient for more than 27 minutes: Full code status Case discussed with , patient and nurse Plan discussed with: Patient My Orders Orders - JONATHON PAUL Procedure Category Date Status Time Admit ADMIT 09/10/25 Transmitted 22:57 Code Status CODE 09/10/25 Transmitted 22:57 Complete Blood Count LAB 09/11/25 Verified 04:00 Comprehensive LAB 09/11/25 Verified Metabolic Panel 04:00 Condition: Serious [facility] 09/10/25 In Process 22:57 Acetaminophen Tablet PHA 09/11/25 In Process (Tylenol Tablet) 00:00 Oxygen By Nasal RT 09/10/25 Transmitted Cannula 22:57 Stat Ekg For Chest [facility] 09/10/25 In Process Pain 22:57 Notify Md Of Changes [facility] 09/10/25 In Process From Base 22:57 Rn Mental Health For [facility] 09/10/25 In Process 24 Hours 22:57 Emergency Dysrhythmia [facility] 09/10/25 In Process Protocol 22:57 Rhythm Strips Once [facility] 09/10/25 In Process Every Shift 22:57 Visit Coding STANDARD RES Billing Provider: AIDA ALDRICH MD Date of Service if different f: Sep 10, 2025 Common Visit Codes: 53933-FGUVAWK INP/OBS CARE (HIGH) Secondary Visit Codes: 40259-[id number] CARE PLAN 30 MINUTES JONATHON PAUL Sep 10, 2025 23:51
[2025-09-11] MEDS ORDERED: ACETAMINOPHEN 325 MG TAB PO PRN
[2025-09-11 00:38] LABS: Total Iron Binding Capacity 338.0 ug/dL (250-425)
[2025-09-11 00:42] LABS: Ferritin 3.0 ng/mL (22-322)
[2025-09-11 00:43] LABS: Iron 10.0 ug/dL (65-175)
[2025-09-11 01:36] LABS: Triglycerides 96 mg/dL (< 150)
[2025-09-11 01:38] LABS: Cholesterol 96 mg/dL (< 200)
[2025-09-11 01:43] LABS: HDL Cholesterol 38 mg/dL (40-59)
[2025-09-11 03:04] VITALS: BP 104/47; PULSE 83; RESP 18; TEMP 98.2; O2SAT 98
[2025-09-11 03:54] VITALS: BP 116/40; PULSE 76; RESP 18; TEMP 98.2
[2025-09-11 04:15] VITALS: BP 97/50; PULSE 72; RESP 17; TEMP 98.4
[2025-09-11 04:33] LABS: Urine Protein, UAD TRACE (Negative)
[2025-09-11 04:40] LABS: Amphetamine Screen, Urine Neg (NEGATIVE); Barbiturate Scree,Urine Neg (NEGATIVE); Benzodiazephine Screen, Urine Neg (NEGATIVE); Cannabinoid Screen, Urine Neg (NEGATIVE); Cocaine Screen, Urine Neg (NEGATIVE); Opiate Scree,Urine Neg (NEGATIVE); Phencyclidine Screen, Urine Neg (NEGATIVE)
[2025-09-11 07:30] VITALS: BP 94/46; PULSE 63; RESP 16; TEMP 98.3
[2025-09-11 08:41] LABS: Hematocrit 26.9 % (41.0-53.0); Mean Corpuscular Volume 60.0 fL (80.0-100.0)
[2025-09-11 08:44] LABS: Hemoglobin 7.4 g/dL (13.5-17.5); Mean Corpuscular Hemoglobin 16.4 pg (28.0-32.0); Nucleated Red Blood Cells % 1.0 %
[2025-09-11 08:53] LABS: INR 1.08 (0.9-1.15); Partial Thromboplastin Time 26.8 SEC (24.5-34.5); Prothrombin Time 11.4 sec (9.3-11.8)
[2025-09-11 08:59] LABS: Albumin 4.0 g/dL (3.2-4.8); Alkaline Phosphatase 60 U/L (46-116); Anion Gap 8 (5-15); BUN/Creatinine Ratio 13.1 (10.0-20.0); Blood Urea Nitrogen 11 mg/dL (9-23); Carbon Dioxide 27 mmol/L (20-31); Chloride 106 mmol/L (98-107); Glucose 89 mg/dL (74-106); Potassium 4.1 mmol/L (3.5-5.1); Sodium 141 mmol/L (136-145); Total Protein 7.4 g/dL (5.7-8.2)
[2025-09-11 09:00] VITALS: BP 91/42; PULSE 97; RESP 14; TEMP 98.2; O2SAT 97
[2025-09-11 09:04] LABS: Alanine Aminotransferase < 9 U/L (7-40); Bilirubin, Total 2.5 mg/dL (0.2-1.0); Calcium 8.7 mg/dL (8.7-10.4)
[2025-09-11] MEDS: TAMSULOSIN HYDROCHLORIDE 0.4 MG CAP PO SCH (10:18)
[2025-09-11] MEDS: PANTOPRAZOLE 40 MG TAB PO SCH (10:18)
[2025-09-11 10:23] LABS: Anisocytosis Marked
[2025-09-11 10:24] LABS: Ovalocytes MODERATE; Tear Drop Cells FEW
[2025-09-11 13:00] VITALS: BP 113/44; PULSE 86; RESP 18; O2SAT 100
--- NOTE | 2025-09-11 16:10 | DVHDSRES ---
Discharge Summary Date of Admission Resident Creating Document: ANGY GORDON RESIDENT Sep 10, 2025 at 22:57 Date of Discharge: Sep 11, 2025 Admitting Diagnosis Microcytic anemia Wounds: No wounds Labs/Diagnostic Data: Laboratory Results Test 09/11/25 08:19 09/11/25 03:20 09/10/25 16:54 White Blood Count 6.4 10^3/uL (4.4-10.8) Red Blood Count 4.49 10^6/uL (4.5-5.90) Hemoglobin 7.4 g/dL (13.5-17.5) Hematocrit 26.9 % (41.0-53.0) Mean Corpuscular Volume 60.0 fL (80.0-100.0) Mean Corpuscular Hemoglobin 16.4 pg (28.0-32.0) Mean Corpuscular Hemoglobin Concent 27.4 g/dL (32.0-36.0) Red Cell Distribution Width 29.7 % (11.8-14.3) Platelet Count 394 10^3/uL (140-450) Mean Platelet Volume 9.2 fL (6.9-10.8) Neutrophils (%) (Auto) 75.5 % (37.0-80.0) Lymphocytes (%) (Auto) 14.2 % (10.0-50.0) Monocytes (%) (Auto) 7.9 % (0.0-12.0) Eosinophils (%) (Auto) 1.6 % (0.0-7.0) Basophils (%) (Auto) 0.8 % (0.0-2.0) Neutrophils # (Auto) 4.8 10 ^3/uL (1.6-8.6) Lymphocytes # (Auto) 0.9 10 ^3/uL (0.4-5.4) Monocytes # (Auto) 0.5 10 ^3/uL (0-1.3) Eosinophils # (Auto) 0.1 10 ^3/uL (0-0.8) Basophils # (Auto) 0.1 10 ^3/uL (0-0.2) Nucleated Red Blood Cells 1.0 % Platelet Estimate Adequate Hypochromasia (manual) Marked Poikilocytosis (manual) Moderate Anisocytosis (manual) Marked Microcytosis Marked Tear Drop Cells Few Ovalocytes Moderate Schistocytes Moderate Prothrombin Time 11.4 sec (9.3-11.8) Prothrombin Time INR 1.08 (0.9-1.15) Activated Partial Thromboplast Time 26.8 SEC (24.5-34.5) Sodium Level 141 mmol/L (136-145) Potassium Level 4.1 mmol/L (3.5-5.1) Chloride Level 106 mmol/L (98-107) Carbon Dioxide Level 27 mmol/L (20-31) Anion Gap 8 (5-15) Blood Urea Nitrogen 11 mg/dL (9-23) Creatinine 0.84 mg/dL (0.700-1.30) Glomerular Filtration Rate Calc 108 mL/min (>90) BUN/Creatinine Ratio 13.1 (10.0-20.0) Serum Glucose 89 mg/dL (74-106) Calcium Level 8.7 mg/dL (8.7-10.4) Total Bilirubin 2.5 mg/dL (0.2-1.0) Aspartate Amino Transferase (AST) 17 U/L (13-40) Alanine Aminotransferase (ALT) < 9 U/L (7-40) Alkaline Phosphatase 60 U/L (46-116) Total Protein 7.4 g/dL (5.7-8.2) Albumin 4.0 g/dL (3.2-4.8) Urine Color Yellow (Yellow) Urine Clarity Clear (Clear) Urine pH 5.5 (5.0-9.0) Urine Specific [place] 1.028 (1.001-1.035) Urine Protein Trace (Negative) Urine Ketones Trace (Negative) Urine Blood Negative /uL (Negative) Urine Nitrite Negative (Negative) Urine Bilirubin Negative (Negative) Urine Urobilinogen Normal mg/dL (Negative) Urine Leukocyte Esterase Negative /uL (Negative) Urine RBC None seen /hpf (0 - 3) Urine Microscopic WBC 1 /HPF (0-3) Urine Squamous Epithelial Cells None seen /hpf (<5) Urine Bacteria None seen /hpf (None Seen) Urine Mucus Few (None Seen) Urine Glucose Normal mg/dL (Normal) Urine Opiates Screen Neg (NEGATIVE) Urine Fentanyl Screen Neg (NEGATIVE) Urine Barbiturates Screen Neg (NEGATIVE) Urine Phencyclidine Screen Neg (NEGATIVE) Urine Amphetamines Screen Neg (NEGATIVE) Urine Benzodiazepines Screen Neg (NEGATIVE) Urine Cocaine Screen Neg (NEGATIVE) Urine Cannabinoids Screen Neg (NEGATIVE) Iron Level 10 ug/dL (65-175) Total Iron Binding Capacity 338 ug/dL (250-425) Percent Iron Saturation 3.0 % (20-55) Ferritin 3.0 ng/mL (22-322) Triglycerides Level 96 mg/dL (< 150) Cholesterol Level 96 mg/dL (< 200) LDL Cholesterol 49 mg/dL (< 100) HDL Cholesterol 38 mg/dL (40-59) Vitamin B12 Level 347 pg/mL (211-911) Vitamin D 25-Hydroxy 33.7 ng/mL (30.0-100) Folic Acid 10.32 ng/mL (>5.38) Other Laboratory Tests 09/11/25 08:19 Brief Hx & Hospital Course: Patient is a 45-year-old male with past medical history of GERD, chronic microcytic anemia, who presented to [facility] with chief complaints of dizziness. The patient is under the care of a assistant floor covering printer and undergoes blood draws every 2 weeks, he states he was contacted by his doctor due to his hemoglobin being 6.7 on his last blood draw . He has had a history of microcytic anemia since 10 years and has had multiple blood transfusions since then. Patient states that he has had multiple colonoscopies and endoscopies in the last 10 years which did not reveal anything. Patient denies any constipation, blood in stools, hematemesis, hematuria, nausea, vomiting, diarrhea , chest pain. At the urging of his doctor, he presented to the ED for evaluation. ON evaluation in the ED, the patient was afebrile, tachycardic, normotensive, saturating adequately on room air. Initial labs show hemoglobin of 6.1 and thrombocytosis. Blood transfusion was ordered and he admitted for further work up and monitoring. Follow up labs show Hb of 7.4 after transfusion with normalization of platelet levels. Iron panel shows low iron and ferritin. Bone marrow biopsy was recommended, however, this can be done outpatient. Additionally patient has appointment [facility] on 09[facility]2024 for endoscopy and colonoscopy. The patient is considered stable for discharge home. He will follow up with his PCP, assistant floor covering printer, and gastro group. All recommendations were explained to the patient, all questions and concerns were addressed. Physical Exam General: The patient alert and oriented in person place and time. Patient following commands HEENT: Normocephalic, atraumatic, normal reactive pupils, EOM intact, pale conjunctiva, pink moist mucous membrane Respiratory/pulmonary: Bilateral chest expansion, no pain on palpation of chest wall, clear lungs bilaterally, vesicular murmurs present in almost all lung gallardo, no associated crackles or wheezes. Cardiovascular: Normal RRR, normal S1 and S2, no murmurs Abdomen: Obese, Abdomen nondistended, normal bowel sounds, soft, there is no pain to palpation in any of the abdominal quadrants, no palpable masses. Extremities: No deformities, there is no peripheral edema present at the lower extremities, normal pulses Skin: No rashes or pruritus, there is no sacral edema present at this time. Neurological: Intact cranial nerves with no focal neurologic deficits Goals of care and discharge planning discussed with the patient for over 30 minutes. Goals of care discussed with Dr. Mejia Consults/Reason for consult IR was consulted for bone marrow biopsy Condition at Discharge: Stable Final Diagnosis/Problems List Acute on chronic iron defieciency anemia GERD Vitamin D deficiency Discharge Disposition: Home Discharge Instruct/Medications Diet: Regular Activity: No Restrictions, As Tolerated Follow Up/Referral: Follow up with DC clinic in 1 week Follow up with Hematology for outpatient bone marrow biopsy Medications: As per EMR Scheduled Cholecalciferol (Vitamin D3), 2,000 UNIT OR DAILY, (Reported) Ferrous Sulfate (Ferrous Sulfate), 1 TAB PO BID, (Reported) Omeprazole (Gnp Omeprazole), 1 TAB PO DAILY, (Reported) Tamsulosin Hcl (Flomax), 0.4 MG PO DAILY, (Reported) Discharge Statement: "Patient was advised to return to the ER or call 911 if any headaches, dizziness, shortness of breath, chest pain, abdominal pain, bleeding, fevers, or worsening of medical condition. Patient was counseled about treatment plan, medications, possible side effects, patientverbalized understanding. All questions were answered to the best of my ability. This discharge took greater then 30 minutes in planning, reviewing documentation, counseling the patient, and discussing with other team members." ASSESSMENT ASSESSMENT Assessment Acute on chronic iron defieciency anemia Visit Coding STANDARD RES Billing Provider: ARIADNA MEJIA MD Date of Service if different f: Sep 11, 2025 ANGY GORDON RESIDENT Sep 11, 2025 16:10
== END 2025-09-11 15:17 | disposition home or self-care (01) | DRG 663 ==
LOC: ER 16:06 → OVERFLOW 22:57
PROVIDERS: ADMIT Student in an Organized Health Care Education/Training Program; ATTEND Student in an Organized Health Care Education/Training Program
PROC: 30233N1 Transfusion of Nonautologous Red Blood Cells into Peripheral Vein, Percutaneous Approach (ICD-10-PCS; principal; 2025-09-11)
DX: D50.9 Iron deficiency anemia, unspecified (principal); E55.9 Vitamin D deficiency, unspecified; K21.9 Gastro-esophageal reflux disease without esophagitis; N40.0 Benign prostatic hyperplasia without lower urinary tract symptoms; F17.200 Nicotine dependence, unspecified, uncomplicated
CPT/HCPCS: 36415; 80048; 80053; 80061; 80307; 81001; 82306; 82607; 82728; 82746; 83540; 83550; 85025; 85610; 85730; 86850; 86870; 86900; 86901; 86902; 86922; G0378